=== PATIENT | female | born 1945 | race Caucasian/White ===

== ENCOUNTER 2023-08-09 03:30 | Inpatient (IN) | payer OTHER, SELFPAY ==
[2023-08-08 20:56] VITALS: BP 200/89
[2023-08-08 21:26] LABS: % Basophils 0.5 % (0-2); % Immature Granulocytes 0.5 % (0-0.5); % Lymphocytes 19.6 % (20.5-51.1); % Monocytes 6.6 % (1.7-9.3); % Neutrophils 68.8 % (42.2-75.2); Absolute Basophils 0.1 10^3/uL (0-0.2); Absolute Eosinophils 0.5 10^3/uL (0-0.7); Absolute Immature Granulocytes 0.1 10^3/uL (0-0.05); Absolute Lymphocytes 2.5 10^3/uL (1.2-3.4); Absolute Monocytes 0.9 10^3/uL (0.1-0.6); Absolute Neutrophils 8.9 10^3/uL (1.4-6.5); Hematocrit 46.3 % (37.0-47.0); Hemoglobin 15.9 g/dL (12.0-16.0); Mean Corp Hgb Conc. 34.3 g/dL (33.0-37.0); Mean Corpuscular Hgb 31.5 pg (27.0-31.0); Mean Corpuscular Volume 91.7 fL (81.0-99.0); Mean Platelet Volume 9.1 fL (7.4-10.4); Nucleated Red Blood Cells % 0 %; Platelet Count 337 10^3/uL (130-400); Red Blood Cell Count 5.05 10^6/uL (4.20-5.40); Red Cell Dist. Width 13.5 % (11.5-14.5); White Blood Cell Count 12.9 10^3/uL (4.8-10.8)
[2023-08-08 21:41] LABS: ALT (SGPT) 17 U/L (0-35); AST (SGOT) 25 U/L (14-36); Albumin 4.4 g/dl (3.5-5.0); Alkaline Phosphatase 75 U/L (38-126); Blood Urea Nitrogen 28 mg/dl (7-17); Carbon Dioxide 26 mmol/L (22-30); Chloride 103 mmol/L (98-107); Glucose 137 mg/dl (70-99); Potassium 3.9 mmol/L (3.5-5.1); Sodium 140 mmol/L (135-145); Total Bilirubin 0.8 mg/dl (0.2-1.3); Total Protein 8.2 g/dl (6.3-8.2); eGFR 56.95
[2023-08-08 21:52] LABS: NT-proBNP 1400 pg/ml; Troponin I < 0.012 ng/ml
[2023-08-09] VITALS (10 sets, daily range): BP systolic 98–145; BP diastolic 46–74; PULSE 55; BMI 32.8; BMI 30.6
[2023-08-09 00:53] LABS: APTT 37.1 Sec (23.4-35.0)
[2023-08-09 00:55] LABS: D-Dimer 1.37 ug/mlFEU (0.00-0.50)
--- NOTE | 2023-08-09 01:17 | ED.GENMED ---
History of Present Illness
General
Chief Complaint: Breathing Problem
Source: patient, previous radiology exam (Echocardiogram 2019 showing EF of 70 to 75% LVOT gradient as well as moderate mitral regurgitation) and previous hospital records (Outpatient sleep study June 10, 2023 showing severe obstructive sleep
apnea)
Exam Limitations: none
Time Seen by Provider: 08/08/23 23:11
Nursing documentation reviewed up to this point in time: agreed with
Travel History
Have you had any contact with someone who has COVID-19?: No
Do you have any symptoms of coronavirus? Fever > 100 degrees, chills, cough, shortness of breath, sore throat, loss of taste or smell, muscle aches, or headache?: No
History of Present Illness
History of Present Illness:
This is an 78-year-old woman who has history of hypertension, hyperlipidemia, hypothyroidism. Diagnosed with severe obstructive sleep apnea on sleep study June 10, she was fitted with CPAP with nocturnal oxygen which she began using
approximately 1 month ago. 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 She follows with Dr. Ulrich and and reports follow-up echocardiogram within the past year
was stable and unchanged. She also notes some chronic nasal congestion, chronic fullness and decreased hearing in her left ear that has been an ongoing issue for more than a year.
More recently however over the past 2 nights she complains of severe dyspnea after lying down in bed. Dyspnea accompanied with some palpitations feeling that her heart is beating hard and somewhat rapid. She was able to fall asleep last night
after starting her CPAP but dyspnea worsened tonight after lying down in bed which prompted ED evaluation. She has noted some dyspnea and exertion over the past few days most noted when going up or down the steps. She has not had a cough, no
fevers or chills, no chest pain, no leg pain or swelling. No change in weight. No history of similar episodes in the past.
She follows with pulmonary, Dr. Imelda Nichols with next appointment scheduled in 2 weeks time.
She also follows with ENT with next appointment September 21, 2023.
Past History
Past History
ED Past Medical History: HTN, Hypercholesterolemia and Hypothyroidism
ED Past Surgical History: Appendectomy and Gynecological
Social History
Tobacco: Non-smoker
Alcohol: None
Drug: None
Personal:
Living: with family
Employment: Retired
Family History
Family History: Other (Noncontributory)
Phy Exam
Physical Exam
Physical Exam:
GENERAL: 78-year-old woman appears somewhat younger than stated age, bright and alert, pleasant, appears in no acute distress. Very mild resting tachypnea noted more so when talking in longer sentences. Room air pulse ox 86 to 88%.
EYE: pupils equal and reactive. anicteric
NECK: Supple, nontender, no meningismus, no significant adenopathy.
ENT: posterior pharynx is clear, oral mucosa is moist. TM clear b/l, moderately boggy pale blue turbinates without rhinorrhea.
CARDIAC: Regular rate and rhythm. 3/6 holosystolic murmur
LUNGS: no acute respiratory distress, scant bibasilar rales left greater than right otherwise lungs are clear to auscultation.
ABDOMEN: Soft, nondistended, without focal tenderness, no r/g, normoactive BS.
NEUROLOGICAL: Alert and oriented x3, no focal neuro deficits.
SKIN: Warm and dry, normal color, skin intact. No rash.
MUSCULOSKELETAL: No C/C/E. peripheral pulses are full and equal b/l. No palpable tenderness.
PSYCH: Normal and appropriate interaction.
Scores
Heart Failure Risk
Heart Failure Risk Score: Yes
History of Stroke or TIA: No
History of intubation for respiratory distress: No
Heart rate on ED arrival >/= 110: No
SaO2 <90% on arrival on room air: Yes
HR >/=110 during 3min walk test (or too ill to perform test): Yes
ECG has acute ischemic changes: No
Urea >/=12mmol/L (BUN 33.6mg/dL): No
Serum CO2>/=35mmol/L: No
Troponin I or T elevated to NE Level (0.4mg/dL): No
NT-proBNP >/=5,000ng/L (5,000pg/ml): No
HF Risk Score: 3
Admission Status: HIGH RISK 15.9% Consider SNF treatment or admission to hospital
Course
Orders/Labs/Results
Orders:
Orders
08/08/23 21:01
Electrocardiogram (*1) Urgent
Reason for Study: Shortness of Breath
EKG- Treatment ONCE
CR Chest - 2 Views Urgent
Comment:
Reason For Exam: SOB
08/08/23 21:16
Complete Blood Count/With Diff Urgent
Comprehensive Metabolic Panel Urgent
NT-proBNP Urgent
Troponin I Urgent
08/08/23 23:40
D-Dimer Urgent
Comment: .
PTT Urgent
08/09/23 01:13
CT Chest Pe Study Urgent
Comment:
Reason For Exam: SOB, elevated d-dimer, hypoxia
08/09/23 01:49
Urinalysis Reflex To Culture Urgent
Date Specimen was Collected: 08/09/23
Time Specimen was Collected: 01:49
08/09/23 02:31
Furosemide [Lasix] 40 mg IV NOW STA
Abnormal Lab Results
08/08/23 08/09/23
21:16 00:28
WBC 12.9 H 10^3/uL
(4.8-10.8)
MCH 31.5 H pg
(27.0-31.0)
Abs Immat Gran (auto) 0.1 H 10^3/uL
(0-0.05)
Absolute Neuts (auto) 8.9 H 10^3/uL
(1.4-6.5)
Absolute Monos (auto) 0.9 H 10^3/uL
(0.1-0.6)
Lymphocytes % 19.6 L %
(20.5-51.1)
APTT 37.1 H Sec
(23.4-35.0)
D-Dimer 1.37 H ug/mlFEU
(0.00-0.50)
BUN 28 H mg/dl
(7-17)
Glucose 137 H mg/dl
(70-99)
Calcium 11.0 H mg/dl
(8.4-10.2)
08/08/23 21:16
08/08/23 21:16
Vital Signs
Initial and Last Documented VS:
Initial Vital Signs
Temp Pulse Resp BP Pulse Ox
97.9 F 87 20 200/89 89
08/08/23 20:56 08/08/23 20:56 08/08/23 20:56 08/08/23 20:56 08/08/23 20:56
Last Documented Vital Signs
Temp Pulse Resp BP Pulse Ox
97.9 F 70 11 131/62 93
08/08/23 20:56 08/09/23 02:42 08/09/23 02:00 08/09/23 02:42 08/09/23 02:00
MDM/Problems Addressed
Differential Diagnosis Includes:
Concern for acute CHF, pneumonia, acute on chronic sinusitis, PE, arrhythmia.
Patient is noted to be moderately hypoxic with room air pulse ox 86 to 88%. Improves to 91 to 94% on nasal cannula oxygen at 2.5 L.
She is noted to have mild nasal stuffiness but according to patient and daughter at bedside this is chronic and unchanged.
Echocardiogram from October 2018 concern for LVOT obstruction as well as moderate mitral regurgitation. Concern for progression from 2019, concern for acute CHF.
Labs are remarkable for mildly elevated white blood cell count of 12.9. Normal H&H. Chemistries show mildly elevated BUN of 28, normal creatinine of 1.0. Troponin is negative.
BNP is elevated at 1400, I have no old results to compare.
Chest x-ray is unremarkable.
Patient reports no recent travel, no leg pain or swelling but she is noted to be moderately hypoxic thus must consider PE thus will check D-dimer and if positive we will plan for CT of the chest/PE study.
She is noted to be moderately hypertensive with blood pressure initially reported 200/89, has improved to 170/90. Patient states her blood pressure generally runs 130s to 140s systolic.
Chronic conditions affecting care: HTN
*Radiology
Radiology exam reviewed: radiology read reviewed (Chest x-ray is unremarkable. CT of the chest shows no PE, mild pulmonary edema)
*Pulse Oximetry
Patient hypoxic: yes
*EKG
Interpreted by ED Provider?: Yes
Comparison EKG: no changes (Unchanged from previous September 2018)
Rate: normal
Rhythm: sinus
[place]: normal axis
Interval: normal interval
QRS Pattern: left vent hypertrophy
Ischemia: T-wave inversion (Flipped T waves high lateral, similar and unchanged from previous)
*Voyage Management System Operator Interpretation
Rate: normal
Interpretation: normal
Rhythm: sinus and PAC's
*Critical Care Note
Total Time (30-74mins, 75-104mins- exclusive of procedures): Not Applicable
Update Note
Update Note:
PE study shows no evidence of PE but does note mild pulmonary edema.
I suspect acute hypoxia, acute nocturnal dyspnea is CHF in nature.
Will give an IV dose of Lasix, continue nasal cannula oxygen and will admit to hospitalist service.
ED Attending Note
-
Portions of this chart may have been created with voice recognition software.� Occasional wrong word or��sound alike� substitutions may have occurred due to the inherent limitations of voice recognition software.
Discharge Plan
Departure
Patient Disposition: Admit
Date of Disposition: 08/09/23
Time of Disposition: 02:33
Admit to: Telemetry
Admit to doctor: Heidy
Presentation/result/management discussed w/ accepting MD/DO: Hospitalist
Condition: Fair
Discharge Problem:
Acute CHF (congestive heart failure), Acute hypoxic respiratory failure
Prescriptions:
No Action
multivitamin [One-A-Day Essential] 1 EACH tablet
1 tab PO QPM
metoprolol tartrate 100 MG tablet
150 mg PO QPM
metoprolol tartrate 100 MG tablet
150 mg PO DAILY
Patient Comments:
just starting 100mg in the AM tomorrow per pt (06/23/15)
aspirin 81 MG tablet,delayed release (DR/EC)
81 mg PO QPM
levothyroxine 100 MCG tablet
88 mcg PO DAILY
calcium carbonate-vitamin D3 [Calcium 600 + D(3)] 1 EACH tablet
2 tab PO QPM
levocetirizine 5 MG tablet
5 mg PO QPM
Fluticasone Propionate
2 spray intranasal QPM PRN (Reason: congestion)
Patient Comments:
50mcg
cyanocobalamin (vitamin B-12) [Vitamin B-12] 1,000 mcg Tablet
1 mcg PO DAILY
rosuvastatin 20 mg Tablet
20 mg PO DAILY
amlodipine benzoate
5 mg PO DAILY
iron
27 mg PO DAILY
lisinopril
40 mg PO DAILY
montelukast
10 mg PO DAILY
lisinopril 10 MG tablet
40 mg PO DAILY
Referrals:
Liliana Lassiter MD [Family Provider] -
Interventions
Interventions:
*Risk Screen - Suicide Last Done: 08/08/23 20:56
*General Assessment Last Done: 08/08/23 20:56
*Neglect/Abuse Screening Last Done: 08/08/23 20:56
ED- Fall Risk Assessment Last Done: 08/09/23 00:11
*ED COVID-19 Vaccine History Last Done: 08/09/23 00:11
ED- Cardiac Assessment Last Done: 08/09/23 00:11
ED- Pulmonary Assessment Last Done: 08/09/23 00:12
[2023-08-09] MEDS: LASIX 40 MG IV ×2 (02:42→08:54)
--- NOTE | 2023-08-09 03:00 | HPS.HSE ---
Family Physician
-
Family Physician: Liliana Lassiter MD
Chief Complaint
-
Worsening SoB
History of Present Illness
78F HX HTN, HLD, hypothyroid , Asymmetric septal hypertrophy.. mild to mod LVOT obstruction , stable serial ECHO, severe DEEJAY , start using CPAP for 4 weeks pw orthopnea, worsening APODACA.
ROS
She has not had a cough, no fevers or chills, no chest pain, no leg pain or swelling.
No change in weight.
No history of similar episodes in the past.
Medical History
Past Medical History
Past Medical History: Reports HTN, Hypercholesterolemia, Hypothyroidism and Other (DEEJAY on CPAP HS )
Past Surgical History: Reports Appendectomy and
Social History
Tobacco: Non-smoker
Alcohol: None
Family History
Family History: Not pertinent
Allergies / Home Medications
Allergies reflects when Allergies were last updated in [facility].
Home Medications with original date entered in [facility]
Allergy/Medication List:
Allergies
Allergy/AdvReac Type Severity Reaction Status Date / Time
prednisone Allergy Unknown Verified 08/08/23 23:59
Home Medications
Fluticasone Propionate 2 spray intranasal QPM PRN congestion 06/23/15
aspirin 81 mg tablet,delayed release 81 mg PO QPM 06/23/15
c21/15
levocetirizine 5 mg tablet 5 mg PO QPM 06/23/15
levothyroxine 100 mcg tablet 88 mcg PO DAILY 06/23/15
metoprolol tartrate 100 mg tablet 150 mg PO DAILY 06/23/15
metoprolol tartrate 100 mg tablet 150 mg PO QPM 06/23/15
multivitamin (One-A-Day Essential tablet) 1 tab PO QPM 06/23/15
amlodipine benzoate 5 mg PO DAILY 08/08/23
cyanocobalamin (vitamin B-12) 1,000 mcg tablet (Vitamin B-12) 1 mcg PO DAILY 08/08/23
iron 27 mg PO DAILY 08/08/23
lisinopril 40 mg PO DAILY 08/08/23
montelukast 10 mg PO DAILY 08/08/23
rosuvastatin 20 mg tablet 20 mg PO DAILY 08/08/23
lisinopril 10 mg tablet 40 mg PO DAILY 08/09/23
Review of Systems
-
Constitutional: Reports No Symptoms
EENT: Reports No Symptoms
Respiratory: Reports See HPI
Cardiac: Reports See HPI
Abdomen/GI: Reports No Symptoms
: Reports No Symptoms
Musculoskeletal: Reports No Symptoms
Skin: Reports No Symptoms
Neurological: Reports No Symptoms
Endocrine: Reports No Symptoms
Hematologic/Lymphatic: Reports No Symptoms
Psych: Reports No Symptoms
Physical Exam
Vital Signs
Vital Signs
Temp Pulse Resp BP Pulse Ox
97.9 F 70 11 131/62 93
08/08/23 20:56 08/09/23 02:42 08/09/23 02:00 08/09/23 02:42 08/09/23 02:00
Physical Exam
General: Other (see below )
Laboratory Results
-
08/08/23 21:16
08/08/23 21:16
Laboratory Results
APTT 37.1 Sec (23.4-35.0) H 08/09/23 00:28
Total Bilirubin 0.8 mg/dl (0.2-1.3) 08/08/23 21:16
AST 25 U/L (14-36) 08/08/23 21:16
ALT 17 U/L (0-35) 08/08/23 21:16
Alkaline Phosphatase 75 U/L (38-126) 08/08/23 21:16
Troponin I < 0.012 ng/ml 08/08/23 21:16
Data Reviewed
-
Diagnostic Radiology: Report Reviewed by me
CT Scan: Report Reviewed by me
Lab Data: Labs Reviewed by me
Old Records: Reviewed
Impression/Plan
-
Reviewed VS: unremarkable except POx 92 on RA
PE
Gen: no acute distress.
HEENT: anicteric
Neck: supple, no JVD
Lungs: mild resting tachypnea
Cor: RRR S1 S2 pansystolic murmur noted
Abdomen: benign exam
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
MS: edema
Psych: apprpiate
Data
WCC 12.9
DD 1.37
BUN 28
nl Cr
e GFR 56
BG 137
Ca 11
NEG TPNI
proBNP 1400
Pending UA
EKG
NORMAL SINUS RHYTHM
LEFT VENTRICULAR HYPERTROPHY WITH REPOLARIZATION ABNORMALITY ( R in aVL ,
Alex product )
ABNORMAL ECG
WHEN COMPARED WITH ECG OF 01-SEP-2018 14:55,
NO SIGNIFICANT CHANGE WAS FOUND
CXR : no acute process
07/22/22 ECHO
LVEF 70-75
Asymmetric septal hypertrophy.
Moderate mitral regurgitation.
Mild aortic stenosis.
CTA PE prtocol
No PE
Mild pul edema
prominemt mediastinal and b/l hilar LAD
No prior hospitalist admission:
ASSESSMENT & PLAN
New onset acute pulmonary edema
Associated acute hypoxic RTF
P Card: Dr Ruboi
- cont. IV lasix 40 daily
- cont CARGO BRACER Lisinopril
- cont CARGO BRACER Metoprolol
- daily IOs, WT
- daily BMP
- CBC card consult
Hypercalcemia
- held Calcium carbonate 600 mg-vitamin D3 10 mcg (400 unit) 2 tab PO QPM
- FU Ca
Severe DEEJAY
- cont. CPAP HS
Chronic condition:
HTN
Hypercholesterolemia
Hypothyroidism
- cont. all OP Med s
DVT Px: LMWH
Code: Full
Ip TLM
[2023-08-09 03:10] LABS: Urine Albumin Negative (Neg - Trace); Urine Bilirubin Negative (Negative); Urine Character Clear (Clear); Urine Color Yellow; Urine Glucose Negative (Negative); Urine Ketone Negative (Negative); Urine Leukocyte 2+ (Negative); Urine Nitrite Negative (Negative); Urine Occult Blood Negative (Negative); Urine Urobilinogen Negative (Neg - 1+)
[2023-08-09 03:41] LABS: Urine Squamous Cell 16-20 /LPF (Few)
[2023-08-09 04:02] LABS: Urine Red Blood Cell 0-2 /HPF (0-2)
[2023-08-09 04:03] LABS: Urine Bacteria Few (Negative)
--- NOTE | 2023-08-09 05:10 | PTCARENOTE ---
Pt admitted to room 2130 from ED via stretcher, aaox3 and able to make needs known, O2 at 3L via NC. Pt offers no c/o pain, however complains of congestion mostly from left nostril and left ear decrease hearing and feelings of increase secretions in
the back of her throat but that do not interfere with swallowing or breathing. Pt oriented to room and call light.
[2023-08-09 06:54] LABS: Blood Urea Nitrogen 27 mg/dl (7-17); Calcium 10.1 mg/dl (8.4-10.2); Carbon Dioxide 29 mmol/L (22-30); Chloride 103 mmol/L (98-107); Estimated Creatinine Clearance 40 ml/min; Glucose 108 mg/dl (70-99); Potassium 3.5 mmol/L (3.5-5.1); Sodium 139 mmol/L (135-145); eGFR > 60.00
--- NOTE | 2023-08-09 07:57 | CON.CAR ---
Addendum entered and electronically signed by Melvin Sanchez MD 08/09/23 12:08:
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 No edema. No chest pain. She did receive IV lasix, and feels better since admission. Exam with RRR, III/ systolic murmur across precordium, no edema. Cr
0.9.
SOB. Possible acute HFPEF. Check echo. Will need to be cautious with diuresis given HOCM physiology. Will assess need for additional diuretic in AM.
Original Note:
Consultation
Consultation Request
Date/Time Consultation Requested: 08/09/23 05:10
Date/Time Consultation Performed: 08/09/23 07:45
Requesting Provider: Dr. Moody
Performing Provider: MARCELINO Venegas for Dr. Sanchez
Reason for Consultation: Acute heart failure
Medical History
-
Chief Complaint: Shortness of breath
History of Present Illness:
Nereyda Robison is an 78-year-old female (known to Dr. Rubio, her primary service cleaner), with LVOT obstruction, aortic stenosis, mitral regurgitation, hypertension, dyslipidemia, and hypothyroidism presented with shortness of breath. Her
shortness of breath started approximately 1 week ago. At that time she had dyspnea on exertion. She had no shortness of breath with rest. She denies associated symptoms of chest pain, diaphoresis, and nausea with her APODACA. On Tuesday evening, she
felt short of breath while going to bed. She put on her CPAP with oxygen therapy as prescribed and fell asleep and did not have any issues overnight. Last night, Tuesday night, she experienced the same situation but did not receive any relief from
her CPAP. She had a severe orthopnea. She tried to sit up but was still unable to take a deep breath. She presented to the emergency department. Her proBNP was found to be 1400. CAT scan did not show PE nor thoracic aortic dissection but did
show mild pulmonary edema. She was given furosemide 40 mg IV and reports significant relief.
Past Medical History
Past Medical History: HTN, Hypercholesterolemia, Hyperthyroidism, Valvular Disease (Mitral regurgitation) and Other (LVOT obstruction)
Past Surgical History: Appendectomy and Gynecological
Social History
Tobacco: Former Smoker
Living: With Family
Employment: Retired
Family History
Family History: Reviewed & Not Pertinent
Allergies / Home Medications
Allergy/AdvReac Type Severity Reaction Status Date / Time
prednisone Allergy Unknown Verified 08/08/23 23:59
Medication Instructions Recorded Confirmed Type
Fluticasone Propionate 2 spray intranasal QPM PRN 06/23/15 08/09/23 History
congestion
aspirin 81 mg tablet,delayed 81 mg PO QPM 06/23/15 08/08/23 History
release
calcium carbonate 600 mg-vitamin 2 tab PO QPM 06/23/15 08/08/23 History
D3 10 mcg (400 unit) tablet
(Calcium 600 + D(3))
levocetirizine 5 mg tablet 5 mg PO QPM 06/23/15 08/09/23 History
levothyroxine 100 mcg tablet 88 mcg PO DAILY 06/23/15 08/09/23 History
metoprolol tartrate 100 mg tablet 150 mg PO DAILY 06/23/15 08/09/23 History
metoprolol tartrate 100 mg tablet 150 mg PO QPM 06/23/15 08/09/23 History
multivitamin (One-A-Day Essential 1 tab PO QPM 06/23/15 08/09/23 History
tablet)
amlodipine benzoate 5 mg PO DAILY 08/08/23 08/09/23 History
cyanocobalamin (vitamin B-12) 1 mcg PO DAILY 08/08/23 08/09/23 History
1,000 mcg tablet (Vitamin B-12)
iron 27 mg PO DAILY 08/08/23 08/09/23 History
lisinopril 40 mg PO DAILY 08/08/23 08/09/23 History
montelukast 10 mg PO DAILY 08/08/23 08/09/23 History
rosuvastatin 20 mg tablet 20 mg PO DAILY 08/08/23 08/09/23 History
lisinopril 10 mg tablet 40 mg PO DAILY 08/09/23 08/09/23 History
Review of Systems
-
History Source: Patient
All other systems: Negative unless noted
Respiratory: No Symptoms
Cardiac: No Symptoms
Abdomen/GI: No Symptoms
: No Symptoms
Physical Exam
Vital Signs
Temp Pulse Resp BP Pulse Ox
98.1 F 64 18 120/58 94
08/09/23 07:54 08/09/23 07:54 08/09/23 07:54 08/09/23 07:54 08/09/23 07:54
Lab Results
08/08/23 21:16
08/09/23 05:47
Troponin I < 0.012 ng/ml 08/08/23 21:16
Chk-P-Zugraskgaru Pept 1400 pg/ml 08/08/23 21:16
Physical Exam
General: Well Developed, Well Nourished, No Apparent Distress and Comfortable
HEENT: Normocephalic and Anicteric
Respiratory: Clear and Non Labored Respirations
Cardiac: S1/S2, Regular Rhythm and Murmur (III/ RUSB crescendo decrescendo murmur)
Breast: Deferred by me
GI: Soft, Non Tender, Non Distended and Normal Bowel Sounds
Rectal: Deferred by Provider
Genito-urinary: No Costovertebral Tender
Musculoskeletal: No Clubbing, No Cyanosis and No Edema
Skin: Warm and Dry
Neuro: AO x 3
Hematologic/Lymphatic: No Lymphadenopathy
Psych: Calm
Impression / Plan
-
HFpEF, acute, severe requiring hospitalization
-Presented with orthopnea and elevated proBNP
-Improvement with furosemide 40 mg IV, hold for now given possible LVOT obstruction
-Trend daily weight, I/O, and BMP with diuresis, we do not want her over-diuresed
-Update TTE
-Heart failure education during hospitalization
Left ventricular outflow tract obstruction
-Suspicious for HOCM (asymmetric septal hypertrophy with MOLLY)
-Resting mid peaking 70 mmHg gradient in the LVOT, mid to late peaking gradient up to 91 mmHg at rest
-Prior echocardiogram technically difficult, questionable LVOT obstruction versus mid cavity gradient, update TTE
Mitral regurgitation, with MOLLY by TTE 07/2022
Aortic stenosis, mild with peak/mean gradients 34/60 mmHg by TTE 07/2022
Hypertension
Dyslipidemia
DEEJAY, severe, on CPAP, follows with Dr. Nichols
Prediabetes
Data Reviewed
-
EKG: Report Reviewed by me (Sinus rhythm, LVH, rate 74)
Radiology: Report Reviewed by me (CXR: No acute disease of the chest)
CT Scan: Report Reviewed by me (Chest: No evidence of pulmonary embolism or thoracic aortic dissection. Findings suggestive of mild pulmonary edema. Mild coronary arterial and aortic valvular calcification.)
Labs: Labs Reviewed by me
Old Records: Reviewed
[2023-08-09] MEDS: SYNTHROID 88 MCG PO (07:58)
[2023-08-09] MEDS: LOPRESSOR 150 MG PO (08:53)
[2023-08-09] MEDS: KCL 20 MEQ PO (08:53)
[2023-08-09] MEDS: SINGULAIR 10 MG PO (08:53)
[2023-08-09] MEDS: CRESTOR 20 MG PO (08:53)
[2023-08-09] MEDS: ZESTRIL 40 MG PO (08:54)
[2023-08-09] MEDS: NORVASC 5 MG PO (08:54)
--- NOTE | 2023-08-09 14:20 | CM ---
Reviewed the chart notes and spoke with the patient at the bedside. The patient's granddaughter resides with the patient in a two story home with two steps to enter. The patient has a CPAP machine and O2 concentrator. CPAP is from [facility]. The
patient has a stair glide in home. The patient confirmed her pharmacy of choice is [facility] [address] [place]. continues to be available to patient/family and is monitoring medical plan for needs at discharge.
Plan: Discharge plans will depend on the patient's progress.
--- NOTE | 2023-08-09 15:44 | W.PN.HOSP.TC ---
Today's Communication/Plan
-
.
Assessment / Plan
Assessment / Plan
ASSESSMENT:
Heart failure with preserved ejection fraction
Elevated D-dimer
Hypertension
Obstructive sleep apnea on CPAP
Dyslipidemia
Chronic allergies
Hypercalcemia
DVT prophylaxis
PLAN:
# Heart failure with preserved ejection fraction
Patient had shortness of breath since 1 week, orthopnea the night before admission
Elevated proBNP 1400
X-ray chest report: No acute disease of the chest
CT chest on 08/09/2023 report: 1. No evidence of pulmonary embolism or thoracic aortic dissection.
2. Findings suggestive of mild pulmonary edema. No significant pleural effusion on either side.
3. Mediastinal and hilar lymphadenopathy of unknown etiology.
4. Mild coronary arterial and aortic valvular calcification. Please correlate with symptoms of and risk factors for coronary artery and valvular disease, with further workup as clinically appropriate.
Echo on 07/22/2022 report: Hyperdynamic left ventricular systolic function.
�Estimated left ventricular ejection fraction is 70-75% �
�Asymmetric septal hypertrophy.� Mid cavity and left ventricular outflow tract
�gradients as noted.
�Moderate mitral regurgitation, with MOLLY
�Mild aortic stenosis.
ECHO report today: Asymmetric septal hypertrophy (IVS 1.6cm, LVPW 1.2cm).
�Hyperdynamic left ventricular systolic function. Left ventricular ejection
�fraction is 70-75%.
�Peak gradient across the LVOT is 120 mmHg.
�Systolic anterior motion of the anterior mitral valve leaflet. Moderate mitral
�regurgitation.
�Finding consistent with HOCM.
Continue metoprolol
�
Improvement with Lasix 40 mg IV, Lasix on hold due to possibility of LVOT obstruction
Monitor daily weights, I's/O
# Elevated D-dimer 1.37
CT chest report as above, no evidence of PE
Continue DVT prophylaxis with Lovenox
# Hypertension
Continue amlodipine, lisinopril, metoprolol
# Obstructive sleep apnea on CPAP
# Dyslipidemia
continue rosuvastatin
# Chronic allergies
Continue loratadine, montelukast, fluticasone nasal spray
# Hypercalcemia
On admission 11
Calcium carbonate+ vitamin D3 was put on hold
Calcium today is 10.1
# DVT prophylaxis
Continue Lovenox
Anticipated Discharge: 24 - 48 hours
Subjective/Interval History
-
Date of Service: August 09, 2023
Patient does not have any breathing difficulty, chest pain, fever, chills, cough. She reports having nasal congestion.
She is currently on 2 L of oxygen, at SpO2 93%
Objective Data
-
Labs:
Laboratory Results
08/09/23
05:47
Sodium 139
Potassium 3.5
Chloride 103
Carbon Dioxide 29
BUN 27 H
Creatinine 0.9
Glucose 108 H
Calcium 10.1
Vital Signs:
Vital Signs
Temp Pulse Resp BP Pulse Ox
97.8 F 55 16 111/50 93
08/09/23 15:16 08/09/23 15:16 08/09/23 15:16 08/09/23 15:16 08/09/23 15:16
I&O
08/08/23 08/09/23 08/10/23
06:59 06:59 06:59
Intake Total 500 / 500
Output Total 1100 / 1100
Balance -600 / -600
Review of Systems
-
All other systems: Reviewed and negative (As per history)
Physical Exam
-
General: Well Developed, Well Nourished, No Apparent Distress and Comfortable
HEENT: Normocephalic and Atraumatic
Respiratory: Clear to Auscultation
Cardiac: Regular Rhythm, S1/S2 and Murmur (Systolic)
GI: Soft, Nontender, Nondistended and Normal Bowel Sounds
Musculoskeletal: No Clubbing, No Cyanosis and No Edema
Skin: Warm and Dry
Neuro: Awake, Alert, Oriented and AO x 3
Psych: Calm
--- NOTE | 2023-08-09 16:13 | W.PN.UPDATE ---
Update Note
Progress Note Update
Patient seen and examined
Impression:
Heart failure preserved EF.
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
Valvular heart disease including MR, aortic stenosis.
Essential hypertension
Dyslipidemia
Obstructive sleep apnea, severe recently initiated on CPAP at night
Obesity with BMI of 30
Prediabetes
Plan:
Acute CHF preserved EF.
She presents with torsional therapy at the [facility] dyspnea
Acute hypoxic respiratory insufficiency secondary to acute CHF
Repeated echocardiogram 08/09/23
Asymmetric septal hypertrophy (IVS 1.6cm, LVPW 1.2cm).
�Hyperdynamic left ventricular systolic function. Left ventricular ejection
�fraction is 70-75%.
�Peak gradient across the LVOT is 120 mmHg.
�Systolic anterior motion of the anterior mitral valve leaflet. Moderate mitral
�regurgitation.
�Finding consistent with HOCM.
�Compared to 07/22/22: prior LVOT gradient was 91 mmHg.
Improved with IV Lasix.
Noted with marginal BP.
Repeated echocardiogram with worsening of LVOT gradient.
Monitor hemodynamics closely holding further diuresis over the next 24 hours.
Continue beta-isael with caution
Hold calcium channel isael/amlodipine awaiting hypotension and vasodilation with worsening of LVOT gradient.
Attempt to wean off O2.
CPAP at night
[2023-08-09] MEDS: LOVENOX 40 MG SC (18:04)
[2023-08-09] MEDS: CLARITIN 10 MG PO (18:04)
[2023-08-09] MEDS: REFRESH EYE DROPS (PF) 1 DROPS OPHTH (18:04)
[2023-08-09] MEDS: ASPIR LOW (ENTERIC COATED) 81 MG PO (18:04)
[2023-08-09] MEDS: LOPRESSOR PO (20:20)
[2023-08-09] MEDS: REFRESH CELLUVISC GEL 1 DROPS BOTH EYES (20:20)
[2023-08-10] VITALS (8 sets, daily range): BP systolic 112–143; BP diastolic 52–70; PULSE 60–79; BMI 30.4
[2023-08-10] MEDS: SYNTHROID 88 MCG PO (05:57)
[2023-08-10 06:59] LABS: Blood Urea Nitrogen 37 mg/dl (7-17); Calcium 10.3 mg/dl (8.4-10.2); Carbon Dioxide 30 mmol/L (22-30); Chloride 99 mmol/L (98-107); Estimated Creatinine Clearance 33 ml/min; Glucose 113 mg/dl (70-99); Potassium 4.4 mmol/L (3.5-5.1); Sodium 139 mmol/L (135-145)
[2023-08-10] MEDS: LOPRESSOR 150 MG PO (08:29)
[2023-08-10] MEDS: SINGULAIR 10 MG PO (08:29)
[2023-08-10] MEDS: CRESTOR 20 MG PO (08:29)
[2023-08-10] MEDS: ZESTRIL 40 MG PO (08:29)
--- NOTE | 2023-08-10 10:35 | W.PN.CD ---
Addendum entered and electronically signed by Melvin Sanchez MD 08/10/23 17:09:
78 yo female with HOCM, LVOT gradient 120, obesity, DEEJAY/CPAP admitted with SOB. She was given 2 doses of lasix and feels better. Exam with RRR, III/ systolic murmur across precordium. Cr 1.1. Tele: SR/SB 40s-60s.
Will need to be cautious with diuretic given HOCM, LVOT obstruction. She is stable off of diuretic today. We may do prn lasix at home. Continue metoprolol. Hold amlodipine--BP looks good.
Original Note:
Today's Communication / Plan
-
continue to hold Lasix and Amlodipine, ambulate and monitor BP
Impression / Plan
-
HFpEF, acute, severe requiring hospitalization and IV diuresis
-Presented with orthopnea and elevated proBNP 1400
-Improvement with furosemide 40 mg IV, hold Lasix given LVOT obstruction/HOCM
-Trend daily weight, I/O, and BMP with diuresis, we do not want her over-diuresed due to HOCM
-echo 08/09/23 with hyperdynamic LV function, EF 75%, peak gradient across the LVOT is 120mmHg, moderate MR, consistent with HOCM
-Heart failure education during hospitalization
Left ventricular outflow tract obstruction
-echo consistent with HOCM (asymmetric septal hypertrophy with MOLLY), peak gradient across the LVOT is 120mmHg, previously 91mmHg
-Prior echocardiogram technically difficult, questionable LVOT obstruction versus mid cavity gradient
-echo as above
HTN
-stable with holding Lasix and Amlodipine at this time.
Stable PMH:
Mitral regurgitation, moderate on echo as above.
Aortic stenosis, mild with peak/mean gradients 34/60 mmHg by TTE 07/2022
Dyslipidemia
DEEJAY, severe, on CPAP, follows with Dr. Nichols
Prediabetes
Physical Exam
Vital Signs/Labs
Vital Signs
Temp Pulse Resp BP Pulse Ox
97.8 F 59 14 143/54 93
08/10/23 07:30 08/10/23 07:30 08/10/23 07:30 08/10/23 08:29 08/10/23 10:04
08/09/23 08/10/23 08/11/23
06:59 06:59 06:59
Actual Weight 66.497 kg 66.026 kg
08/08/23 21:16
08/10/23 05:40
APTT 37.1 Sec (23.4-35.0) H 08/09/23 00:28
08/08/23
21:16
[id number] Pept 1400
LAB Results
08/08/23
21:16
Troponin I < 0.012
Physical Exam
Constitutional: No acute distress
EENT: Anicteric and Moist mucous membranes
Cardiovascular: Rhythm & rate is regular
Respiratory: Respiratory effort normal and Lungs clear to auscul.
GI: Soft, Non tender and Normal bowel sounds
Neuro/Psych: AO x 3
Other: Skin (warm, dry)
Data Reviewed
-
Date of Service: August 10, 2023
Medical Decision Making: Reviewed Test Results
EKG: Report Reviewed by me
Echo: Report Reviewed by me
Labs: Labs Reviewed by me
Old Records: Reviewed
--- NOTE | 2023-08-10 10:56 | W.PN.HOSP.TC ---
Addendum entered and electronically signed by Nabeel Jimenez MD 08/10/23 16:38:
Patient seen and examined
Discussed with resident
Discussed with cardiology
Acute CHF secondary to HOCM
Echocardiogram indicative of increased LVOT graduated to 120 mmHg.
Significant improvement with 2 doses of IV Lasix.
Hold further diuresis and amlodipine for now avoiding hypotension.
Continue high-dose of beta-isael.
Increase activity.
Evaluate for home O2 (on CPAP at night with 2 L of nasal oxygen)
Final determination of discharge medication regimen over the next 24 hours.
Original Note:
Today's Communication/Plan
-
Attempt to wean off oxygen
Continue metoprolol
Hold amlodipine
Hold Lasix
Ambulate and monitor BP
Assessment / Plan
Assessment / Plan
ASSESSMENT:
Heart failure with preserved ejection fraction
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
Elevated D-dimer
Hypertension
Obstructive sleep apnea on CPAP
Dyslipidemia
Chronic allergies
Hypercalcemia
DVT prophylaxis
PLAN:
# Heart failure with preserved ejection fraction
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
Patient had shortness of breath since 1 week, orthopnea the night before admission
Elevated proBNP 1400
X-ray chest report: No acute disease of the chest
CT chest on 08/09/2023 report: 1. No evidence of pulmonary embolism or thoracic aortic dissection.
2. Findings suggestive of mild pulmonary edema. No significant pleural effusion on either side.
3. Mediastinal and hilar lymphadenopathy of unknown etiology.
4. Mild coronary arterial and aortic valvular calcification. Please correlate with symptoms of and risk factors for coronary artery and valvular disease, with further workup as clinically appropriate.
Echo on 07/22/2022 report: Hyperdynamic left ventricular systolic function.
�Estimated left ventricular ejection fraction is 70-75% �
�Asymmetric septal hypertrophy.� Mid cavity and left ventricular outflow tract
�gradients as noted.
�Moderate mitral regurgitation, with MOLLY
�Mild aortic stenosis.
ECHO report : Asymmetric septal hypertrophy (IVS 1.6cm, LVPW 1.2cm).
�Hyperdynamic left ventricular systolic function. Left ventricular ejection
�fraction is 70-75%.
�Peak gradient across the LVOT is 120 mmHg.
�Systolic anterior motion of the anterior mitral valve leaflet. Moderate mitral
�regurgitation.
�Finding consistent with HOCM.
Continue metoprolol
Attempt to wean off O2
Ambulate and monitor BP
�
Improvement with Lasix 40 mg IV, Lasix on hold due to possibility of worsening LVOT obstruction
Hold amlodipine awaiting hypotension, vasodilation and for the same above concern
Monitor daily weights, I's/O
# Elevated D-dimer 1.37
CT chest report as above, no evidence of PE
Continue DVT prophylaxis with Lovenox
# Hypertension
Stop amlodipine, continue with lisinopril, metoprolol
# Obstructive sleep apnea on CPAP
# Dyslipidemia
continue rosuvastatin
# Chronic allergies
Continue loratadine, montelukast, fluticasone nasal spray
# Hypercalcemia
On admission 11
Calcium carbonate+ vitamin D3 was put on hold
Calcium today is 10.3
# DVT prophylaxis
Continue Lovenox
Anticipated Discharge: 24 - 48 hours
Subjective/Interval History
-
Date of Service: August 10, 2023
Patient reports feeling better today, no SOB, no chest pain, dizziness, cough.
She is on 3 L oxygen at O2 sat 93%
Objective Data
-
Labs:
Laboratory Results
08/10/23
05:40
Sodium 139
Potassium 4.4 D
Chloride 99
Carbon Dioxide 30
BUN 37 H
Creatinine 1.1 H
Glucose 113 H
Calcium 10.3 H
Vital Signs:
Vital Signs
Temp Pulse Resp BP Pulse Ox
97.8 F 59 14 143/54 93
08/10/23 07:30 08/10/23 07:30 08/10/23 07:30 08/10/23 08:29 08/10/23 10:04
I&O
08/09/23 08/10/23 08/11/23
06:59 06:59 06:59
Intake Total 500 / 500 1440 / 1440
Output Total 1100 / 1100 500 / 500
Balance -600 / -600 940 / 940
Review of Systems
-
All other systems: Reviewed and negative (As per HPI)
Physical Exam
-
General: Well Developed, Well Nourished and No Apparent Distress
HEENT: Normocephalic and Atraumatic
Respiratory: Clear to Auscultation
Cardiac: Regular Rhythm, S1/S2 and Murmur (Systolic crescendo decrescendo murmur)
GI: Soft, Nontender, Nondistended and Normal Bowel Sounds
Musculoskeletal: No Clubbing, No Cyanosis and No Edema
Skin: Warm and Dry
Neuro: Awake, Alert, Oriented and AO x 3
Psych: Calm
--- NOTE | 2023-08-10 15:30 | CM ---
Reviewed the chart notes and spoke with the patient at the bedside. IMM signed and placed on the patient's chart. The patient continues on supplemental O2 @ 3L/min. CM continues to be available to patient/family and is monitoring medical plan for
needs at discharge.
Plan: Discharge to home when medically stable. If unable to wean from O2 will need home O2 testing.
[2023-08-10] MEDS: LOVENOX 40 MG SC (17:19)
[2023-08-10] MEDS: CLARITIN 10 MG PO (17:19)
[2023-08-10] MEDS: ASPIR LOW (ENTERIC COATED) 81 MG PO (17:19)
--- NOTE | 2023-08-10 18:31 | PTCARENOTE ---
pt oob with oxygen accessioner. pt walked the wisdom with Respiratory for a home O2 assessment this afternoon. pt was aaox3, pleasant and ate all her meals this shift.
[2023-08-10] MEDS: LOPRESSOR PO (20:41)
--- NOTE | 2023-08-10 23:21 | PTCARENOTE ---
Pt transferred to room 408-1 via WC and O2 via NC at 3L.All personal belongings and Cpap machine sent with pt, respiratory aware and will reapply mask. Report called to assigned RN.
--- NOTE | 2023-08-10 23:30 | PTCARENOTE ---
Received patient from via wheelchair. Patient stood and pivoted from wheelchair to bed independently. No current complaints of pain. Oriented patient to room and placed call mccarthy within reach. CPAP applied by RT.
[2023-08-11 03:29] VITALS: BP 114/60
[2023-08-11 03:50] VITALS: PULSE 77
[2023-08-11] MEDS: SYNTHROID 88 MCG PO (05:33)
[2023-08-11 05:36] VITALS: BMI 30.6
[2023-08-11 06:48] LABS: Blood Urea Nitrogen 35 mg/dl (7-17); Calcium 9.9 mg/dl (8.4-10.2); Carbon Dioxide 31 mmol/L (22-30); Chloride 98 mmol/L (98-107); Estimated Creatinine Clearance 40 ml/min; Glucose 106 mg/dl (70-99); Potassium 3.9 mmol/L (3.5-5.1); Sodium 137 mmol/L (135-145); eGFR > 60.00
[2023-08-11 07:16] VITALS: BP 114/64
[2023-08-11] MEDS: CRESTOR 20 MG PO (08:34)
[2023-08-11] MEDS: LOPRESSOR 150 MG PO (08:36)
[2023-08-11] MEDS: SINGULAIR 10 MG PO (08:36)
[2023-08-11] MEDS: ZESTRIL 40 MG PO (08:39)
--- NOTE | 2023-08-11 11:29 | W.PN.CD ---
Addendum entered and electronically signed by Kaylin Rubio MD 08/11/23 13:23:
I saw and examined the patient.
The NEURORADIOLOGIST's note was reviewed and I agree with the note.
Comment: Breathing is much better, needed a small amount of oxygen yesterday. Still no trial today off of oxygen. On exam, she is clear to auscultation bilaterally. She has a regular rate and rhythm normal S1-S2 2 out of 6 systolic murmur, lower
extremity edema is absent. Overall, she is feeling much better with mild diuresis. However, in review of her data, her D-dimer was elevated and she has mediastinal and hilar lymphadenopathy of unknown etiology. The degree of heart failure seems
out of proportion to the oxygen requirement. Will discuss with medicine. Recommend repeat weaning trial. From a cardiovascular perspective, diastolic dysfunction in the setting of hypertrophic obstructive cardiomyopathy is difficult to manage.
That said, we will move forward with as needed Lasix dosing. She will take on days she weighs more than 3 pounds in a day or 5 pounds in 5 days. If she takes more than 2 times then she will call. I will try to further optimize her hemodynamics to
limit outflow obstruction. Will decrease lisinopril to 20 mg a day and add diltiazem 120 mg a day. In the outpatient setting, we can further decrease lisinopril and increase diltiazem as heart rate allows. Once that is stable can repeat the LV
outflow track gradient via echocardiogram. We did briefly discuss the new hokum drug Camzyos. If no improvement on repeat echo with refer to [facility]. I offered referral now, but she prefers to see if we can help without traveling to [place].
Original Note:
Today's Communication / Plan
-
BP remains stable off amlodipine. Continue metoprolol. Will discuss OP lasix plan with Dr. Rubio- may do PRN, which I discussed with patient.
Impression / Plan
-
HFpEF: improved with 2 doses of lasix
-Presented with orthopnea and elevated proBNP 1400
-we do not want her over-diuresed due to HOCM, so lasix now held- appears euvolemic today
-echo 08/09/23 with hyperdynamic LV function, EF 75%, peak gradient across the LVOT is 120mmHg, moderate MR, consistent with HOCM
Left ventricular outflow tract obstruction
-echo consistent with HOCM (asymmetric septal hypertrophy with MOLLY), peak gradient across the LVOT is 120mmHg, previously 91mmHg
-Prior echocardiogram technically difficult, questionable LVOT obstruction versus mid cavity gradient
-continue BB
HTN
-stable with CCB held
-continue BB and CCB
Stable PMH:
Mitral regurgitation, moderate on echo as above.
Aortic stenosis, mild with peak/mean gradients 34/60 mmHg by TTE 07/2022
Dyslipidemia
DEEJAY, severe, on CPAP, follows with Dr. Nichols
Prediabetes
Physical Exam
Vital Signs/Labs
Vital Signs
Temp Pulse Resp BP Pulse Ox
97.9 F 75 16 136/60 95
08/11/23 07:16 08/11/23 08:36 08/11/23 07:16 08/11/23 08:36 08/11/23 07:16
08/10/23 08/11/23 08/12/23
06:59 06:59 06:59
Actual Weight 66.026 kg 66.451 kg
08/08/23 21:16
08/11/23 05:52
APTT 37.1 Sec (23.4-35.0) H 08/09/23 00:28
08/08/23
21:16
Opn-H-Rytqaqozanz Pept 1400
LAB Results
08/08/23
21:16
Troponin I < 0.012
Physical Exam
Constitutional: No acute distress
EENT: Anicteric
Cardiovascular: Rhythm & rate is regular
Respiratory: Respiratory effort normal and Lungs clear to auscul.
GI: Soft, Non tender and Normal bowel sounds
Neuro/Psych: AO x 3
Other: Skin (warm and dry)
Data Reviewed
-
Date of Service: August 11, 2023
EKG: Other (tele SR)
[2023-08-11 12:10] VITALS: BP 107/59
--- NOTE | 2023-08-11 12:38 | W.DS.TRANS ---
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
-
Discharge Instructions:
Discharge Diagnosis/Procedures CHF with HOCM.
Diet 2 Gram Sodium
Specialty Instructions Weigh Daily
Instructions:
Stand-Alone Forms:
Changes to Home Medications: Yes
Discharge Medications:
DC Medications w/original date entered in [employer]
Fluticasone Propionate 2 spray intranasal QPM PRN congestion 06/23/15
aspirin 81 mg tablet,delayed release 81 mg PO QPM Blood Clot Prevention/Tx 06/23/15
calcium carbonate 600 mg-vitamin D3 10 mcg (400 unit) tablet (Calcium 600 + D(3)) 2 tab PO QPM Supplement 06/23/15
levocetirizine 5 mg tablet 5 mg PO QPM Allergies 06/23/15
levothyroxine 100 mcg tablet 88 mcg PO DAILY Thyroid 06/23/15
multivitamin (One-A-Day Essential tablet) 1 tab PO QPM Supplement 06/23/15
cyanocobalamin (vitamin B-12) 1,000 mcg tablet (Vitamin B-12) 1 mcg PO DAILY Supplement 08/08/23
iron 27 mg PO DAILY Supplement 08/08/23
montelukast 10 mg PO DAILY Lung/Breathing Issues 08/08/23
rosuvastatin 20 mg tablet 20 mg PO DAILY High Cholesterol 08/08/23
diltiazem HCl 120 mg capsule,extended release 24 hr 120 mg PO DAILY #30 caps 08/11/23
furosemide 40 mg tablet (Lasix) 40 mg PO DAILY PRN Weight gain over 3lb #30 tabs 08/11/23
lisinopril 20 mg tablet 20 mg PO DAILY #30 tabs 08/11/23
metoprolol tartrate 50 mg tablet 150 mg PO BID #180 tabs 08/11/23
Home Medication Changes
Metoprolol dose increased
Lisinopril dose decreased
Amlodipine discontinued
Diltiazem added.
Pending Results: No
--- NOTE | 2023-08-11 14:59 | CM ---
CM following re: d/c planning
Chart reviewed
Pt is medically stable for d/c
IMM was reviewed with patient by previous CM
Pt was being monitored for home O2 needs however after testing by RT does not meet criteria for O2
Pt has no additional skilled needs noted
PLAN; d/c home no needs
== END 2023-08-11 15:39 | disposition home or self-care (01) | DRG 314 ==
LOC: 4 EAST ACU 03:30
PROVIDERS: Emergency Medicine; ADMITTING PHYSICIAN Internal Medicine; ATTENDING PHYSICIAN Internal Medicine; EMERGENCY PHYSICIAN Emergency Medicine; FAMILY PHYSICIAN Family Medicine; OTHER PHYSICIAN Internal Medicine
PROC: 5A09357 Assistance with Respiratory Ventilation, Less than 24 Consecutive Hours, Continuous Positive Airway Pressure (ICD-10-PCS; 2023-08-09)
DX: I42.1 Obstructive hypertrophic cardiomyopathy (principal); J96.01 Acute respiratory failure with hypoxia; I50.30 Unspecified diastolic (congestive) heart failure; I11.0 Hypertensive heart disease with heart failure; G47.33 Obstructive sleep apnea (adult) (pediatric); E03.9 Hypothyroidism, unspecified; H91.92 Unspecified hearing loss, left ear; I08.0 Rheumatic disorders of both mitral and aortic valves; D72.829 Elevated white blood cell count, unspecified; E66.9 Obesity, unspecified; R73.03 Prediabetes; R59.0 Localized enlarged lymph nodes; E83.52 Hypercalcemia; E78.00 Pure hypercholesterolemia, unspecified; Z79.890 Hormone replacement therapy; Z88.8 Allergy status to other drugs, medicaments and biological substances; Z87.891 Personal history of nicotine dependence; Z68.30 Body mass index [BMI] 30.0-30.9, adult
CPT/HCPCS: 71046; 71275; 80048; 80053; 81003; 81015; 83880; 84484; 85025; 85379; 85730; 87086; 93005; 93306; 94660; 96374; 99285; Q9967

== ENCOUNTER → 2023-09-29 12:40 | Outpatient (REF) | payer OTHER, SELFPAY | LOC: DHCBC MAIN 12:40 | PROVIDERS: ATTENDING PHYSICIAN Nurse Practitioner Gerontology; FAMILY PHYSICIAN Family Medicine | DX: I50.32 Chronic diastolic (congestive) heart failure (principal) | CPT/HCPCS: 93308 ==

== ENCOUNTER 2024-02-27 21:35 | Inpatient (IN) | payer OTHER, SELFPAY ==
[2024-02-27] VITALS (7 sets, daily range): BP systolic 99–176; BP diastolic 42–70; BMI 31.1; BMI 30.5
[2024-02-27 15:39] LABS: INR 1.02; PT 13.2 Sec (11.4-14.6)
[2024-02-27 15:40] LABS: APTT 31.7 Sec (23.4-35.0)
[2024-02-27 15:41] LABS: Hematocrit 23.5 % (37.0-47.0); Hemoglobin 7.8 g/dL (12.0-16.0); Mean Corp Hgb Conc. 33.2 g/dL (33.0-37.0); Mean Corpuscular Hgb 31.5 pg (27.0-31.0); Mean Corpuscular Volume 94.8 fL (81.0-99.0); Mean Platelet Volume 8.6 fL (7.4-10.4); Platelet Count 366 10^3/uL (130-400); Red Blood Cell Count 2.48 10^6/uL (4.20-5.40); Red Cell Dist. Width 16.3 % (11.5-14.5); White Blood Cell Count 25.8 10^3/uL (4.8-10.8)
[2024-02-27 16:15] LABS: ALT (SGPT) 11 U/L (0-35); AST (SGOT) 21 U/L (14-36); Albumin 4.1 g/dl (3.5-5.0); Alkaline Phosphatase 63 U/L (38-126); Blood Urea Nitrogen 21 mg/dl (7-17); Calcium 10.1 mg/dl (8.4-10.2); Carbon Dioxide 24 mmol/L (22-30); Chloride 99 mmol/L (98-107); Glucose 98 mg/dl (70-99); Potassium 4.6 mmol/L (3.5-5.1); Sodium 134 mmol/L (135-145); Total Bilirubin 0.4 mg/dl (0.2-1.3); Total Protein 6.8 g/dl (6.3-8.2)
[2024-02-27 17:03] LABS: % Basophils 0.3 % (0-2); % Eosinophils 1.5 % (0-6); % Immature Granulocytes 1.1 % (0-0.5); % Lymphocytes 6.4 % (20.5-51.1); % Monocytes 4.3 % (1.7-9.3); % Neutrophils 86.4 % (42.2-75.2); Absolute Basophils 0.1 10^3/uL (0-0.2); Absolute Eosinophils 0.4 10^3/uL (0-0.7); Absolute Immature Granulocytes 0.3 10^3/uL (0-0.05); Absolute Lymphocytes 1.6 10^3/uL (1.2-3.4); Absolute Monocytes 1.1 10^3/uL (0.1-0.6); Absolute Neutrophils 22.3 10^3/uL (1.4-6.5); Nucleated Red Blood Cells % 0 %
--- NOTE | 2024-02-27 18:15 | ED.GENMED ---
History of Present Illness
<MARCELINO Sanchez - Last Filed: 02/27/24 20:16>
General
Chief Complaint: Abnormal Lab Value
Source: patient
Exam Limitations: none
Time Seen by Provider: 02/27/24 17:28
Nursing documentation reviewed up to this point in time: agreed with
History of Present Illness
History of Present Illness:
Patient is an 78-year-old female past medical history of heart failure hypertrophic obstructive sleep apnea presents to the ER for evaluation. Patient reports she has felt very weak for the past 1 week. She had blood work done and was sent to the
ER for evaluation for low hemoglobin. She does report that 5 years ago she had a pill endoscopy and was told some vessel was bleeding. She reports for the past several years she has had dark stools though she also is on iron. She is not on blood
thinners other than aspirin. She denies any abdominal pain. She denies any fever or chills. She did have diarrhea last week 2 days however had a normal bowel movement today and none since.
She has so has had more shortness of breath with exertion.
Past History
<MARCELINO Sanchez - Last Filed: 02/27/24 20:16>
Past History
ED Past Medical History: HTN, Hypercholesterolemia and Hypothyroidism
ED Past Surgical History: Appendectomy and Gynecological
Social History
Tobacco: Non-smoker
Alcohol: None
Drug: None
Personal:
Living: with family
Employment: Retired
Family History
Family History: Other (Noncontributory)
Review of Systems
<MARCELINO Sanchez - Last Filed: 02/27/24 20:16>
Review of Systems
Allergies reviewed?: Yes
Other source history: family
All Other Systems: ROS reviewed and negative except as documented in HPI and ROS
Constitutional: Reports fatigue; Denies fever or chills
EENT: Reports no symptoms
Respiratory: Reports trouble breathing (mild [place] )
Cardiac: Reports no symptoms; Denies chest pain or palpitations
ABD/GI: Reports other (dark stools )
: Reports no symptoms
Musculoskeletal: Reports no symptoms
Skin: Reports no symptoms
Neurological: Reports no symptoms
Psychiatric: Reports no symptoms
Phy Exam
<MARCELINO Sanchez - Last Filed: 02/27/24 20:16>
General Physical Exam
General Presentation: no apparent distress
General age: appears stated age
General Skin: warm and dry
General Habitus: elderly
General Hydration: appears well hydrated
Cardiovascular Exam
Cardiovascular Exam: regular rate/rhythm and systolic murmur
Pulmonary Exam
Pulmonary Exam: lungs clear and no respiratory distress
Gastrointestinal Exam
Gastrointestinal Exam: other (Small amount of stool on rectal exam dark in color heme positive)
Neurological Exam
Neurological Exam: alert and oriented x3
Musculoskeletal Exam
Musculoskeletal Exam: full ROM
Skin Exam
Skin Exam: normal color and warm/dry
Psychiatric Exam
Psychiatric Exam: normal mood/affect
Course
<MARCELINO Sanchez - Last Filed: 02/27/24 20:16>
Orders/Labs/Results
Orders:
Orders
02/27/24 14:48
EKG [Electrocardiogram (*1)] Urgent
Reason for Study: Shortness of Breath
EKG- Treatment ONCE
02/27/24 15:06
Type+Screen Urgent
Complete Blood Count/With Diff Urgent
Comprehensive Metabolic Panel Urgent
NT-proBNP Urgent
Comment: ADD ON
PTT Urgent
Prothrombin Time Urgent
02/27/24 17:18
ABO2 Urgent
BBK Wristband Number:
Associate notified that ABO2 has been ordered: [id number]
Date: 02/27/24
Time: 15:42
[employer] Apprentice ID: [id number]
02/27/24 19:10
Add On- LAB Urgent
Tests Added?: cardiac BNP
Chest [CR Chest - 2 Views ] Urgent
Comment:
Reason For Exam: sob
Abnormal Lab Results
02/27/24
15:06
WBC 25.8 H 10^3/uL
(4.8-10.8)
RBC 2.48 L 10^6/uL
(4.20-5.40)
Hgb 7.8 L g/dL
(12.0-16.0)
Hct 23.5 L %
(37.0-47.0)
MCH 31.5 H pg
(27.0-31.0)
RDW 16.3 H %
(11.5-14.5)
Abs Immat Gran (auto) 0.3 H 10^3/uL
(0-0.05)
Absolute Neuts (auto) 22.3 H 10^3/uL
(1.4-6.5)
Absolute Monos (auto) 1.1 H 10^3/uL
(0.1-0.6)
Immature Gran % 1.1 H %
(0-0.5)
Neutrophils % 86.4 H %
(42.2-75.2)
Lymphocytes % 6.4 L %
(20.5-51.1)
Sodium 134 L mmol/L
(135-145)
BUN 21 H mg/dl
(7-17)
Creatinine 1.1 H mg/dL
(0.6-1.0)
Antibody Screen Positive A
(Negative)
02/27/24 15:06
02/27/24 15:06
Vital Signs
Initial and Last Documented VS:
Initial Vital Signs
Temp Pulse Resp BP Pulse Ox
97.6 F 77 16 99/63 95
02/27/24 14:44 02/27/24 14:44 02/27/24 14:44 02/27/24 14:44 02/27/24 14:44
Last Documented Vital Signs
Temp Pulse Resp BP Pulse Ox
97.6 F 96 19 176/70 93
02/27/24 14:44 02/27/24 19:04 02/27/24 19:04 02/27/24 19:04 02/27/24 19:04
<Starr Antoine MD - Last Filed: 02/27/24 20:20>
Orders/Labs/Results
Orders:
Orders
02/27/24 14:48
EKG [Electrocardiogram (*1)] Urgent
Reason for Study: Shortness of Breath
EKG- Treatment ONCE
02/27/24 15:06
Type+Screen Urgent
Complete Blood Count/With Diff Urgent
Comprehensive Metabolic Panel Urgent
NT-proBNP Urgent
Comment: ADD ON
PTT Urgent
Prothrombin Time Urgent
02/27/24 17:18
ABO2 Urgent
BBK Wristband Number:
Associate notified that ABO2 has been ordered: [id number]
Date: 02/27/24
Time: 15:42
[employer] Apprentice ID: [id number]
02/27/24 19:10
Add On- LAB Urgent
Tests Added?: cardiac BNP
Chest [CR Chest - 2 Views ] Urgent
Comment:
Reason For Exam: sob
Abnormal Lab Results
02/27/24
15:06
WBC 25.8 H 10^3/uL
(4.8-10.8)
RBC 2.48 L 10^6/uL
(4.20-5.40)
Hgb 7.8 L g/dL
(12.0-16.0)
Hct 23.5 L %
(37.0-47.0)
MCH 31.5 H pg
(27.0-31.0)
RDW 16.3 H %
(11.5-14.5)
Abs Immat Gran (auto) 0.3 H 10^3/uL
(0-0.05)
Absolute Neuts (auto) 22.3 H 10^3/uL
(1.4-6.5)
Absolute Monos (auto) 1.1 H 10^3/uL
(0.1-0.6)
Immature Gran % 1.1 H %
(0-0.5)
Neutrophils % 86.4 H %
(42.2-75.2)
Lymphocytes % 6.4 L %
(20.5-51.1)
Sodium 134 L mmol/L
(135-145)
BUN 21 H mg/dl
(7-17)
Creatinine 1.1 H mg/dL
(0.6-1.0)
Antibody Screen Positive A
(Negative)
02/27/24 15:06
02/27/24 15:06
Vital Signs
Initial and Last Documented VS:
Initial Vital Signs
Temp Pulse Resp BP Pulse Ox
97.6 F 77 16 99/63 95
02/27/24 14:44 02/27/24 14:44 02/27/24 14:44 02/27/24 14:44 02/27/24 14:44
Last Documented Vital Signs
Temp Pulse Resp BP Pulse Ox
97.6 F 96 19 176/70 93
02/27/24 14:44 02/27/24 19:04 02/27/24 19:04 02/27/24 19:04 02/27/24 19:04
<MARCELINO Sanchez - Last Filed: 02/27/24 20:16>
MDM/Problems Addressed
Differential Diagnosis Includes:
Not limited to anemia, GI bleed, hematological or oncological cause of anemia with elevated white count
MDM/Problems Addressed:
Patient is a 78-year-old female with history of CHF sleep apnea presents to the ER for weakness for the past week. She had outpatient blood work which showed low hemoglobin. She does report she has had dark stools for many years though she is on
iron. She is not on blood thinners other than aspirin. She denies any chest pain but does have some mild shortness of breath with exertion she does wear oxygen at CPAP at night. She denies any recent fever chills she had 2 episodes of diarrhea
last week but that has since resolved. She presents awake alert no acute distress anemic with a hemoglobin of 7.8 platelets normal white count however is 25,000 which is new from patient's last hemoglobin here of 12.12 August 2023. Patient does
have heme positive dark stools. Stable vital signs nontachycardic she is not hypoxic was placed on. With history of CHF will check BNP and chest x-ray and plan for admission consent obtained though patient does not transfusion presently.
<MARCELINO Sanchez - Last Filed: 02/27/24 20:16>
*Radiology
Radiology exam reviewed: radiology read reviewed
*Pulse Oximetry
Patient hypoxic: no
*EKG
Interpreted by ED Provider?: Yes
Interpretation: abnormal
Comparison EKG: no changes
Heart Rate: 76
Rate: normal
Rhythm: sinus
Ischemia: no ischemia
*Critical Care Note
Total Time (30-74mins, 75-104mins- exclusive of procedures): Not Applicable
Data Reviewed
Review of Other/Old Records Reveals: Discharge Summary and Other (Previous labs)
ED Attending Note
<MARCELINO Sanchez - Last Filed: 02/27/24 20:16>
-
Portions of this chart may have been created with voice recognition software.� Occasional wrong word or��sound alike� substitutions may have occurred due to the inherent limitations of voice recognition software.
<Starr Antoine MD - Last Filed: 02/27/24 20:20>
ED Attending Note
Patient seen and examined by attending physician: Yes
I performed the substantive portion of visit, reviewed & personally made and approve the management plan that is documented in note by myself or NOEMY.: Yes
ED Attending Note:
78-year-old female presents to the emergency department with complaints of malaise, weakness, and shortness of breath for about a week. Patient was sent to the emergency department given anemia that was noted on outpatient blood testing on Tuesday.
Patient takes iron so she says her stools are always dark, no bright red blood per rectum, no chest pain, no fever or chills. On exam, patient awake alert pleasant, without complaints. Has had GI bleed noted in the past status post pill endoscopy,
concern patient's symptoms are related to an upper GI bleed. Will admit, telemetry, PPI, GI consult. Stable at this time we will hold off on transfusion
Discharge Plan
Departure
Patient Disposition: Admit
Date of Disposition: 02/27/24
Time of Disposition: 20:15
Admit to: Med/Surg
Admit to doctor: hospitalist
Presentation/result/management discussed w/ accepting MD/DO: Hospitalist
Patient with high blood pressure during this ER visit?: Yes
Condition: Fair
Covid-19: Not Applicable
Discharge Problem:
Anemia, Heme positive stool, dyspnea on exertion
Prescriptions:
No Action
aspirin 81 MG tablet,delayed release (DR/EC)
81 mg PO QPM
levocetirizine 5 MG tablet
5 mg PO QPM
cyanocobalamin (vitamin B-12) [Vitamin B-12] 1,000 mcg Tablet
1,000 mcg PO QPM
rosuvastatin 20 mg Tablet
20 mg PO DAILY
lisinopril 20 mg Tablet
20 mg PO DAILY Qty: 30 0RF
diltiazem HCl 120 mg Capsule,Extended Release 24hr
120 mg PO DAILY Qty: 30 0RF
fluticasone propionate [Flonase Allergy Relief] 50 mcg/actuation spray,suspension
1 spray intranasal DAILY Qty: 16 0RF
Theragen Tablet
1 tab PO QPM
acetaminophen [Tylenol Extra Strength] 500 mg Tablet
1,000 mg PO Q6HPRN PRN (Reason: mild pain)
levothyroxine 88 mcg Tablet
88 mcg PO DAILY
montelukast 10 mg Tablet
10 mg PO QPM
carboxymethylcellulose sodium [Refresh Liquigel] 1 % Drops, Liquid Gel
1 drp BOTH EYES HS
ferrous sulfate 134 mg (27 mg iron) Tablet
134 mg PO DAILY
Systane Ultra 0.4-0.3 % Drops
1 drp BOTH EYES DAILY
calcium carbonate-vitamin D3 [Calcium 600 + D(3)] 600 mg-10 mcg (400 unit) Tablet
2 tab PO DAILY
metoprolol tartrate 50 mg tablet
75 mg PO BID
Patient Comments:
02/27/24: Patient fills 50mg tablets, but states she take 1.5 tabs twice a day for total of 300mg daily. Toprol XL filled same day as Lopressor, may be mixing up the two, since Toprol XL was 100mg tablets.
Referrals:
Liliana Lassiter MD [Family Provider] -
Interventions
Interventions:
*Risk Screen - Suicide Last Done: 02/27/24 17:31
*General Assessment Last Done: 02/27/24 17:31
*Neglect/Abuse Screening Last Done: 02/27/24 17:31
ED- Fall Risk Assessment Last Done: 02/27/24 17:31
*ED COVID-19 Vaccine History Last Done: 02/27/24 17:31
Discharge Date and Time
Print Language: LITHUANIAN
[2024-02-27 20:15] LABS: NT-proBNP 920 pg/ml
--- NOTE | 2024-02-27 21:25 | HPS.HSE ---
Addendum entered and electronically signed by Emerson Carr DO 02/27/24 22:50:
Patient seen and examined independently. Agree with findings and plan as set forth by Karolyn Benites PA-C.
Patient is an 78y F with PMH significant for HOCM, HTN and DEEJAY who presents to ED for evaluation of low Hgb. Patient states that she has felt generally weak and fatigued for the past week or so. She had labs done by her PCP late lat week and
today was called and advised to come to the ED due to Hgb that was significantly lower than previous.
Patient states that she 'always' has very dark stools - for years. She has a prior history of small bowel 'oozing' bleeding discovered on capsule endoscopy about 5 years ago - no definitive treatment was pursued at that time.
Hgb last week it was 7.1 and today in the ED is 7.8.
Patient also has leukocytosis, prior history of unexplained adenopathy and several pound weight loss over the past 6 months or so.
Previous Hgb values have generally been quite high - 15-16 on most recent checks.
Ass:
Symptomatic Normocytic Anemia
History of Small Bowel Bleeding
Leukocytosis
Chronic HFpEF / HOCM
Benign Hypertension
Hypothyroidism
DEEJAY / Nocturnal Hypoxemia
Plan:
Admit for further evaluation and treatment.
Transfuse 1 unit PRBCs for now.
GI evaluation - ? ongoing / increased bleeding from sm bowel source.
Try to obtain prior capsule endoscopy records.
? underling hematologic process given prior polycythemia, leukocytosis, unexplained adenopathy, etc.
Heme evaluation for additional recommendations.
Follow H&H and additional PRBCs if needed.
Follow for any new / worsening symptoms.
Continue usual outpatient medications.
Follow I/Os, daily weights, etc - appears euvolemic at present.
Original Note:
Family Physician
-
Family Physician: Liliana Lassiter MD
Chief Complaint
-
Weakness and Shortness of Breath
History of Present Illness
Pt is an 78 yo F with PMH HFpEF, HOCM, HTN, and DEEJAY on CPAP c/o weakness x 1 week. Pt reports diarrhea and feeling unwell (weakness, fatigue, chills) on Tuesday, feeling fine on Tuesday, feeling sick with diarrhea on prompting her to see
her PCP on Tuesday. Blood work completed on Tuesday revealed Hgb 7.1 and she was advised to go to the ED for additional evaluation and treatment. She describes dark stool attributed to Fe supplementation. She states she completed a pill endoscopy
(completed by Dr Palafox [place]) years ago which revealed a tiny leakage from a vein. Pt's last colonoscopy was 2020 - normal. She has a hx of adenomatous polyps and is on a q5 yr schedule with next colonoscopy at age 79. She also c/o of SOB
beginning the same time as other sxs. Pt states she has CHF and is on a strict low Na diet and weighs herself regularly. She admits to 8 lb weight loss over the past 6+ months. She denies fever, chest pain, palpitations, diaphoresis, abdominal pain,
N/V, peripheral edema, and paresthesia.
Medical History
Past Medical History
Past Medical History: Reports Other
Additional Past Medical History:
Chronic HFpEF
Hypertrophic Obstructive Cardiomyopathy
Essential Hypertension
Hyperlipidemia
Hypothyroidism
Obstructive Sleep Apnea
Past Surgical History: Reports Other
Additional Past Surgical History:
Appendectomy
Tubal Ligation
Social History
Tobacco: Former Smoker (Quit over 20 years)
Alcohol: Occasional
Living: With Family
Family History
Family History: Not pertinent
Allergies / Home Medications
Allergies reflects when Allergies were last updated in [facility].
Home Medications with original date entered in [facility]
Allergy/Medication List:
Allergies
Allergy/AdvReac Type Severity Reaction Status Date / Time
prednisone Allergy hypertensio Verified 02/27/24 14:44
n
Home Medications
aspirin 81 mg tablet,delayed release 81 mg PO QPM Blood Clot Prevention/Tx 06/23/15
levocetirizine 5 mg tablet 5 mg PO QPM Allergies 06/23/15
cyanocobalamin (vitamin B-12) 1,000 mcg tablet (Vitamin B-12) 1,000 mcg PO QPM Supplement 08/08/23
rosuvastatin 20 mg tablet 20 mg PO DAILY High Cholesterol 08/08/23
diltiazem HCl 120 mg capsule,extended release 24 hr 120 mg PO DAILY #30 caps 08/11/23
lisinopril 20 mg tablet 20 mg PO DAILY #30 tabs 08/11/23
fluticasone propionate 50 mcg/actuation nasal spray,suspension (Flonase Allergy Relief) 1 spray intranasal DAILY #16 grams 08/12/23
acetaminophen 500 mg tablet (Tylenol Extra Strength) 1,000 mg PO Q6HPRN PRN mild pain 02/27/24
calcium carbonate 600 mg-vitamin D3 10 mcg (400 unit) tablet (Calcium 600 + D(3)) 2 tab PO DAILY 02/27/24
carboxymethylcellulose sodium 1 % eye liquid gel drops (Refresh Liquigel) 1 drp BOTH EYES HS 02/27/24
ferrous sulfate 134 mg (27 mg iron) tablet 134 mg PO DAILY 02/27/24
levothyroxine 88 mcg tablet 88 mcg PO DAILY 02/27/24
metoprolol tartrate 50 mg tablet 75 mg PO BID 02/27/24
montelukast 10 mg tablet 10 mg PO QPM 02/27/24
peg 400-propylene glycol 0.4 %-0.3 % eye drops (Systane Ultra) 1 drp BOTH EYES DAILY 02/27/24
therapeutic multivitamin 1 tab PO QPM 02/27/24
Review of Systems
-
A 12 point ROS was completed and negative except as noted: Yes
Constitutional: Denies Fever or Chills
Respiratory: Reports Trouble Breathing; Denies Cough
Cardiac: Denies Chest Pain or Palpitations
Abdomen/GI: Reports Black Stools; Denies Abdominal Pain
Physical Exam
Vital Signs
Vital Signs
Temp Pulse Resp BP Pulse Ox
97.6 F 101 20 129/42 98
02/27/24 14:44 02/27/24 20:45 02/27/24 20:45 02/27/24 20:00 02/27/24 20:45
Physical Exam
General: Comfortable and Conversant
HEENT: Anicteric and Moist mucous membranes
Respiratory: Clear and Non Labored Respirations
Cardiac: S1/S2, Regular Rhythm and Murmur
GI: Soft and Non Tender
Rectal: Other (Dark heme-positive stool per ED provider)
Musculoskeletal: No Clubbing, No Cyanosis and No Edema
Skin: Warm and Dry
Neuro: Awake, Alert, Oriented and Nonfocal/grossly intact
Psych: Calm
Laboratory Results
-
02/27/24 15:06
02/27/24 15:06
Laboratory Results
PT 13.2 Sec (11.4-14.6) 02/27/24 15:06
INR 1.02 02/27/24 15:06
APTT 31.7 Sec (23.4-35.0) 02/27/24 15:06
Total Bilirubin 0.4 mg/dl (0.2-1.3) 02/27/24 15:06
AST 21 U/L (14-36) 02/27/24 15:06
ALT 11 U/L (0-35) 02/27/24 15:06
Alkaline Phosphatase 63 U/L (38-126) 02/27/24 15:06
Data Reviewed
-
Lab Data: Labs Reviewed by me
Old Records: Reviewed
Impression/Plan
-
Symptomatic Anemia - Differential includes GI Bleed in setting of Heme-positive stool vs. Hematologic Malignancy in setting of Leukocytosis and Hilar/Mediastinal Lymphadenopathy
-Consult Hematology
-Consult GI
-Transfuse 1 unit PRBCs
-Trend serial Hgb
-Continue Protonix IV BID
-Allow clear liquids
-Attempt to obtain records of prior capsule study, and prior colonoscopy
Chronic HFpEF
Hypertrophic Obstructive Cardiomyopathy
-Monitor Is&Os and Daily Weights
Essential Hypertension
-Continue Cardizem, Metoprolol and Lisinopril
Hyperlipidemia
-Continue rosuvastatin
Hypothyroidism
-Continue Levothyroxine
Obstructive Sleep Apnea
-Continue CPAP
DVT proph: SCDs
Code Status: DNR
[2024-02-27] MEDS: PROTONIX IV 80 MG IV (22:05)
--- NOTE | 2024-02-27 23:15 | PTCARENOTE ---
Pt arrived to room 436-02. Pt ambulated x1 assistance to bed. Pt AAOx3, VSS. Pt in no signs of acute distress, respirations regular. Pt oriented to room, call mccarthy placed within reach.
[2024-02-28] VITALS (11 sets, daily range): BP systolic 102–148; BP diastolic 50–83; PULSE 53–76; BMI 30.2
[2024-02-28] MEDS: SYNTHROID 88 MCG PO (04:52)
--- NOTE | 2024-02-28 06:57 | CON.GI ---
Addendum entered and electronically signed by Yudi Nelson Do, MD 02/28/24 14:49:
I saw and examined the patient.
The LOAN EXAMINER's note was reviewed and I agree with the note.
Comment: Nereyda is an 78yo W with h/o CKD, HTN, CHF and mild who was admitted for symptomatic anemia with chronically dark stools on oral iron. Her last transfusion was in 2015 for similar issues. She had GI eval at [facility] with
EGD/colonoscopy/capsule that showed 2 small nonbleeding AVMs in mid jejunum. She declines cautery. After transfusion of blood yesterday she feels much improved. Vitals reviewed. Labs show severe iron def anemia Hbg 7 range.
Impression
- Acute iron def anemia
ddx includes AVM, PUD or polyps
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
2015 at [place] EGD/colon/VCE
- CHF
- CKD
- HTN
- Mild
- DEEJAY
- Appendectomy
Recommendations
- C/w PPI IV BID
- CLD NPO at [place] for Enteroscopy/colonoscopy tomorrow
- [place] to start now
- Serial H/H
- Appreciate hematology recs, may benefit from IV iron
Family updated bedside. Will follow with you
Original Note:
Consultation
-
Date/Time Consultation Requested: 02/27/24 2230
Date/Time Consultation Performed: 02/28/24 1030
Requesting Provider: Karolyn Benites PA-C
Performing Provider: MARCELINO Greenwood, Yudi Pearson MD
Reason for Consultation: anemia
Medical History
Chief Complaint / HPI
Chief Complaint: weakness
History of Present Illness:
Pt is an 78yo with hx CKD, HTN, CHF, hypertrophic obstructive CM, moderate to severe MR, mild , hypercholesterolemia, hypothyroidism, sleep apnea, prior anemia with hematology follow and prior iron infusions, jejunal AVM's, diverticulosis, and
hemorrhoids with onset of weakness. She was noted on outpatient drop in hbg and sent to ER. In reviewing labs hbg 08/2023 with hbg 15.9 now down to 7.8 on admission. She was noted with dark stools while on iron supplement and heme + in ER. In
reviewing with hematology per [facility] [place] records last colonoscopy 2013 with diverticulosis and hemorrhoids. In 2016 with microcytic, iron deficiency anemia. EGD was completed mild bile reflux and duodenum was normal bx neg Pt proceeded to capsule
with 2 small non bleeding AVM's in mid jejunum.
In reviewing with patient stools chronically dark. She has variable stools with constipation and diarrhea but admits to some loose stool last week. She otherwise denies dysphagia, GERD, nausea, vomiting , abdominal pain or red stools. On
daily ASA no other NSAIDs or anticoagulation. Iron studies with noted iron deficiency.
Past Medical History
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
Past Surgical History: Appendectomy and Gynecological
Social History
Tobacco: Former Smoker
Alcohol: Occasional
Drug: None
Living: With Family
Employment: Retired
Family History
Family History: Other (no family hx colon Ca or polyps )
Allergies / Home Medications
Allergy/AdvReac Type Severity Reaction Status Date / Time
prednisone Allergy hypertensio Verified 02/27/24 14:44
n
�Medication �Instructions �Recorded
aspirin 81 mg tablet,delayed 81 mg PO QPM Blood Clot 06/23/15
release Prevention/Tx
levocetirizine 5 mg tablet 5 mg PO QPM Allergies 06/23/15
cyanocobalamin (vitamin B-12) 1,000 mcg PO QPM Supplement 08/08/23
1,000 mcg tablet (Vitamin B-12)
rosuvastatin 20 mg tablet 20 mg PO DAILY High Cholesterol 08/08/23
diltiazem HCl 120 mg 120 mg PO DAILY #30 caps 08/11/23
capsule,extended release 24 hr
lisinopril 20 mg tablet 20 mg PO DAILY #30 tabs 08/11/23
fluticasone propionate 50 1 spray intranasal DAILY #16 grams 08/12/23
mcg/actuation nasal
spray,suspension (Flonase Allergy
Relief)
acetaminophen 500 mg tablet 1,000 mg PO Q6HPRN PRN mild pain 02/27/24
(Tylenol Extra Strength)
calcium carbonate 600 mg-vitamin 2 tab PO DAILY 02/27/24
D3 10 mcg (400 unit) tablet
(Calcium 600 + D(3))
carboxymethylcellulose sodium 1 % 1 drp BOTH EYES HS 02/27/24
eye liquid gel drops (Refresh
Liquigel)
ferrous sulfate 134 mg (27 mg 134 mg PO DAILY 02/27/24
iron) tablet
levothyroxine 88 mcg tablet 88 mcg PO DAILY 02/27/24
metoprolol tartrate 50 mg tablet 75 mg PO BID 02/27/24
montelukast 10 mg tablet 10 mg PO QPM 02/27/24
peg 400-propylene glycol 0.4 %-0.3 1 drp BOTH EYES DAILY 02/27/24
% eye drops (Systane Ultra)
therapeutic multivitamin 1 tab PO QPM 02/27/24
Review of Systems
-
History Source: Patient and Family
Constitutional: Reports Weight Loss (few lb with low Na diet )
EENT: Reports No Symptoms
Respiratory: Reports No Symptoms
Cardiac: Reports No Symptoms
Abdomen/GI: Reports Diarrhea (loose stool last week ), Constipated and Black Stools (chronic dark stools with iron use )
: Reports No Symptoms
Musculoskeletal: Reports No Symptoms
Skin: Reports No Symptoms
Neurological: Reports Weakness
Endocrine: Reports No Symptoms
Hematologic/Lymphatic: Reports Bleeding
Vital Signs
Temp Pulse Resp BP Pulse Ox
98.1 F 67 18 129/50 100
02/28/24 04:38 02/28/24 04:38 02/28/24 04:38 02/28/24 04:38 02/28/24 03:12
Physical Exam
Exam
General: Well Developed, Well Nourished and No Apparent Distress
HEENT: Normocephalic and Anicteric
Respiratory: Clear
Cardiac: Regular Rhythm
GI: Soft and Non Distended
Musculoskeletal: No Clubbing and No Cyanosis
Skin: Warm and Dry
Neuro: Awake, Alert and AO x 3
Psych: Calm
Results
WBC 25.8 10^3/uL (4.8-10.8) H 02/27/24 15:06
Hgb 7.8 g/dL (12.0-16.0) L 02/27/24 15:06
Hct 23.5 % (37.0-47.0) L 02/27/24 15:06
MCV 94.8 fL (81.0-99.0) 02/27/24 15:06
Plt Count 366 10^3/uL (130-400) 02/27/24 15:06
Absolute Neuts (auto) 22.3 10^3/uL (1.4-6.5) H 02/27/24 15:06
PT 13.2 Sec (11.4-14.6) 02/27/24 15:06
INR 1.02 02/27/24 15:06
APTT 31.7 Sec (23.4-35.0) 02/27/24 15:06
Sodium 134 mmol/L (135-145) L 02/27/24 15:06
Potassium 4.6 mmol/L (3.5-5.1) 02/27/24 15:06
Chloride 99 mmol/L (98-107) 02/27/24 15:06
Carbon Dioxide 24 mmol/L (22-30) 02/27/24 15:06
BUN 21 mg/dl (7-17) H 02/27/24 15:06
Creatinine 1.1 mg/dL (0.6-1.0) H 02/27/24 15:06
Calcium 10.1 mg/dl (8.4-10.2) 02/27/24 15:06
Total Bilirubin 0.4 mg/dl (0.2-1.3) 02/27/24 15:06
AST 21 U/L (14-36) 02/27/24 15:06
ALT 11 U/L (0-35) 02/27/24 15:06
Alkaline Phosphatase 63 U/L (38-126) 02/27/24 15:06
Diagnostic Image Results:
Prior GI Procedures:
EGD: 2016 [facility] [place] completed mild bile reflux and duodenum was normal bx neg
capsule 2016 2 small non bleeding AVM's in mid jejunum pt did not recall double balloon
Colonoscopy: 2014 with diverticulosis and hemorrhoids.
Assessment / Plan
-
Pt is an 78yo with hx CKD, HTN, CHF, hypertrophic obstructive CM, moderate to severe MR, mild , hypercholesterolemia, hypothyroidism, sleep apnea, prior anemia with hematology follow and prior iron infusions, jejunal AVM's, diverticulosis, and
hemorrhoids with onset of weakness. She was noted on outpatient drop in hbg and sent to ER. In reviewing labs hbg 08/2023 with hbg 15.9 now down to 7.8 on admission. She was noted with dark stools while on iron supplement and heme + in ER. In
reviewing with hematology per [facility] [place] records last colonoscopy 2013 with diverticulosis and hemorrhoids. In 2016 with microcytic, iron deficiency anemia. EGD was completed mild bile reflux and duodenum was normal bx neg Pt proceeded to capsule
with 2 small non bleeding AVM's in mid jejunum.
-symptomatic iron deficiency anemia
-hx untreated jejunal AVM's 2016 pt did not recall double balloon
-HFpEF
-hypertrophic obstructive CM due for follow up with [facility]
-moderate to severe
other med problems:
-hx colon polyps
-CKD
-mild
-hypercholesterolemia
-hypothyroidism
-sleep apnea
-diverticulosis
-hemorrhoids
PLAN:
Etiology of anemia related to slow GI blood loss --AVM's with hx valvular disease and prior noted jejunal AVM on capsule, PUD, mass vs other
appears compensated with hx cardiac disease and feeling better today
s/p transfusion
trend hbg
cont PPI
will review with dr. Pearson for EGD +/- capsule and timing
NPO pending time for procedure
heme eval for continued hbg follow and iron management
updated family at bedside
-
-
Thank you for consultation and allowing me to participate in the patient's care. Please call the deputy coroner investigator GI physician during the after hours with any questions or concerns.
[2024-02-28 07:32] LABS: Hematocrit 27.5 % (37.0-47.0); Hemoglobin 9.1 g/dL (12.0-16.0); Mean Corp Hgb Conc. 33.1 g/dL (33.0-37.0); Mean Corpuscular Hgb 30.5 pg (27.0-31.0); Mean Corpuscular Volume 92.3 fL (81.0-99.0); Mean Platelet Volume 8.5 fL (7.4-10.4); Platelet Count 307 10^3/uL (130-400); Red Blood Cell Count 2.98 10^6/uL (4.20-5.40); Red Cell Dist. Width 17.1 % (11.5-14.5); White Blood Cell Count 13.6 10^3/uL (4.8-10.8)
[2024-02-28] MEDS: LOPRESSOR 75 MG PO ×2 (08:44→21:51)
[2024-02-28] MEDS: CRESTOR 20 MG PO (08:44)
[2024-02-28] MEDS: ZESTRIL PO (08:47)
[2024-02-28] MEDS: PROTONIX IV 40 MG IV ×2 (08:48→21:52)
[2024-02-28] MEDS: CARDIZEM CD 120 MG PO (08:48)
[2024-02-28 08:49] LABS: Blood Urea Nitrogen 16 mg/dl (7-17); Calcium 9.5 mg/dl (8.4-10.2); Carbon Dioxide 25 mmol/L (22-30); Chloride 104 mmol/L (98-107); Estimated Creatinine Clearance 34 ml/min; Glucose 89 mg/dl (70-99); Potassium 4.3 mmol/L (3.5-5.1); Sodium 138 mmol/L (135-145); eGFR 56.95
[2024-02-28] MEDS: NSS (PRESERVATIVE FREE) 10 ML IV ×2 (08:49→21:52)
--- NOTE | 2024-02-28 09:59 | CON.ONC ---
Impression
Impression
Pt is an 78 YO F with PMH significant for HOCM, HTN and DEEJAY presenting to with progressive weakness, SOB and low Hb.
Plan
Plan
- patiet s/p 1 unit blood. Hb now at 9.1, continue to monitor.
- GI eval pending. Appreciate inputs
- Patient pending Iron studies. Follow up on results.
Patient History
History of Present Illness
Pt is an 78 YO F with PMH significant for HOCM, HTN and DEEJAY presenting to with progressive weakness, SOB and low Hb. She states she has a history of dark stools and during capsule endoscopy was seen to have bleeding in GI tract 5 years ago. She
noticed no bright red blood with stool recently in the bowl or with wiping. Last night she was transfused one unit of blood, Hb 9.1 today. She is compliant with CPAP, but reports progressive weakness and SOB over last month, with previously
identified hilar adenopathy and weight loss. Today she reports feeling better than yesterday, without headaches, NVD, constipation, abdominal pain, CP or numbness and tingling. She had a few days of diarrhea without blood last week, at that time
COVID -, now resolved.
Past-Medical/Surgical History
HOCM
DEEJAY
HTN
Patient Medication
�Medication �Instructions �Recorded �Confirmed �Last Taken �Type
aspirin 81 mg tablet,delayed 81 mg PO QPM Blood Clot 06/23/15 02/27/24 06/22/15 History
release Prevention/Tx
levocetirizine 5 mg tablet 5 mg PO QPM Allergies 06/23/15 02/27/24 06/22/15 History
cyanocobalamin (vitamin B-12) 1,000 mcg PO QPM Supplement 08/08/23 02/27/24 Unknown History
1,000 mcg tablet (Vitamin B-12)
rosuvastatin 20 mg tablet 20 mg PO DAILY High Cholesterol 08/08/23 02/27/24 Unknown History
diltiazem HCl 120 mg 120 mg PO DAILY #30 caps 08/11/23 02/27/24 Unknown Rx
capsule,extended release 24 hr
lisinopril 20 mg tablet 20 mg PO DAILY #30 tabs 08/11/23 02/27/24 Unknown Rx
acetaminophen 500 mg tablet 1,000 mg PO Q6HPRN PRN mild pain 02/27/24 02/27/24 02/27/24 History
(Tylenol Extra Strength)
calcium carbonate 600 mg-vitamin 2 tab PO DAILY Supplement 02/27/24 02/27/24 Unknown History
D3 10 mcg (400 unit) tablet
(Calcium 600 + D(3))
carboxymethylcellulose sodium 1 % 1 drp BOTH EYES HS Eye Condition 02/27/24 02/27/24 Unknown History
eye liquid gel drops (Refresh
Liquigel)
ferrous sulfate 134 mg (27 mg 134 mg PO DAILY Supplement 02/27/24 02/27/24 Unknown History
iron) tablet
levothyroxine 88 mcg tablet 88 mcg PO DAILY Thyroid 02/27/24 02/27/24 Unknown History
metoprolol tartrate 50 mg tablet 75 mg PO BID Blood Pressure 02/27/24 02/28/24 Unknown History
montelukast 10 mg tablet 10 mg PO QPM Allergies 02/27/24 02/27/24 Unknown History
peg 400-propylene glycol 0.4 %-0.3 1 drp BOTH EYES DAILY Eye Condition 02/27/24 02/27/24 Unknown History
% eye drops (Systane Ultra)
therapeutic multivitamin 1 tab PO QPM Supplement 02/27/24 02/27/24 Unknown History
fluticasone propionate 50 1 spray intranasal DAILY Congestion 02/28/24 02/27/24 Unknown History
mcg/actuation nasal
spray,suspension (Flonase Allergy
Relief)
Active Medications
Generic Name Dose Route Start Last Admin
Trade Name Freq PRN Reason Stop Dose Admin
Acetaminophen 650 mg 02/27/24 22:35
Acetaminophen 325 Mg Tablet PO 03/26/24 22:34
Q4HPRN PRN
mild pain/ fever>100.5F
Cyanocobalamin 1,000 mcg 02/28/24 18:00
Cyanocobalamin 1,000 Mcg Tablet PO 03/27/24 17:59
QPM MICHI
Diltiazem HCl 120 mg 02/28/24 08:00 02/28/24 08:48
Diltiazem 120 Mg Extended Release (24 H) Capsule PO 03/27/24 07:59 120 mg
DAILY MICHI Administration
Levothyroxine Sodium 88 mcg 02/28/24 06:00 02/28/24 04:52
Levothyroxine 88 Mcg Tablet PO 03/27/24 05:59 88 mcg
DAILY @ 0600 MICHI Administration
Lisinopril 20 mg 02/28/24 08:00 02/28/24 08:47
Lisinopril 20 Mg Tablet PO 03/27/24 07:59 Not Given
DAILY MICHI
Metoprolol Tartrate 75 mg 02/28/24 08:00 02/28/24 08:44
Metoprolol 50 Mg Regular Release Tablet PO 03/27/24 07:59 75 mg
BID MICHI Administration
Montelukast Sodium 10 mg 02/28/24 18:00
Montelukast Sodium 10 Mg Tablet PO 03/27/24 17:59
QPM MICHI
Pantoprazole Sodium 40 mg 02/28/24 08:00 02/28/24 08:48
Pantoprazole Sodium 40 Mg/10 Ml Vial IV 03/27/24 07:59 40 mg
BID MICHI Administration
Rosuvastatin Calcium 20 mg 02/28/24 08:00 02/28/24 08:44
Rosuvastatin (Crestor) 20 Mg Tablet PO 03/27/24 07:59 20 mg
DAILY MICHI Administration
Sodium Chloride 10 ml 02/28/24 08:00 02/28/24 08:49
Sodium Chloride 0.9% (Preservative Free) 10 Ml Vial IV 03/27/24 07:59 10 ml
BID MICHI Administration
Sodium Chloride 0 flush 02/27/24 23:00
Sodium Chloride 0.9% (Flush) Syringe IV 03/26/24 22:59
PER PROTOCOL MICHI
Review of Systems
-
History Source: Patient
Constitutional: Reports Weakness
EENT: Reports No Symptoms
Respiratory: Reports Trouble Breathing (mild, intermittent)
Cardiac: Reports No Symptoms
GI: Reports Black Stools (chronic )
Skin: Reports No Symptoms
Neuro: Reports Weakness
Physical Exam
-
General: Well Developed, Well Nourished, No Apparent Distress and Conversant
Pulmonary: Clear
GI: Soft
Musculoskeletal: No Clubbing, No Cyanosis and No Edema
Skin: Warm and Dry
Psych: Calm
Labs
Lab Results
WBC 13.6 10^3/uL (4.8-10.8) H 02/28/24 07:09
RBC 2.98 10^6/uL (4.20-5.40) L 02/28/24 07:09
Hgb 9.1 g/dL (12.0-16.0) L 02/28/24 07:09
Hct 27.5 % (37.0-47.0) L 02/28/24 07:09
MCV 92.3 fL (81.0-99.0) 02/28/24 07:09
MCH 30.5 pg (27.0-31.0) 02/28/24 07:09
MCHC 33.1 g/dL (33.0-37.0) 02/28/24 07:09
RDW 17.1 % (11.5-14.5) H 02/28/24 07:09
Plt Count 307 10^3/uL (130-400) 02/28/24 07:09
MPV 8.5 fL (7.4-10.4) 02/28/24 07:09
Abs Immat Gran (auto) 0.3 10^3/uL (0-0.05) H 02/27/24 15:06
Absolute Neuts (auto) 22.3 10^3/uL (1.4-6.5) H 02/27/24 15:06
Absolute Lymphs (auto) 1.6 10^3/uL (1.2-3.4) 02/27/24 15:06
Absolute Monos (auto) 1.1 10^3/uL (0.1-0.6) H 02/27/24 15:06
Absolute Eos (auto) 0.4 10^3/uL (0-0.7) 02/27/24 15:06
Absolute Basos (auto) 0.1 10^3/uL (0-0.2) 02/27/24 15:06
Immature Gran % 1.1 % (0-0.5) H 02/27/24 15:06
Neutrophils % 86.4 % (42.2-75.2) H 02/27/24 15:06
Lymphocytes % 6.4 % (20.5-51.1) L 02/27/24 15:06
Monocytes % 4.3 % (1.7-9.3) 02/27/24 15:06
Eosinophils % 1.5 % (0-6) 02/27/24 15:06
Basophils % 0.3 % (0-2) 02/27/24 15:06
Creatinine 1.0 mg/dL (0.6-1.0) 02/28/24 07:09
Vital Signs
Vital Signs
Temp Pulse Resp BP Pulse Ox
97.9 F 62 18 118/58 97
02/28/24 07:27 02/28/24 07:27 02/28/24 07:02/28/24 07:27 02/28/24 07:27
[2024-02-28 10:21] LABS: Iron < 20 ug/dl (37-170)
[2024-02-28 10:27] LABS: Total Iron Binding Capacity 306 ug/dl (265-497)
[2024-02-28 11:33] LABS: Ferritin 53.1 ng/ml (11.1-264.0)
--- NOTE | 2024-02-28 12:43 | W.PN.HOSP.TC ---
Today's Communication/Plan
-
apprec GI/heme
trend HGB
Assessment / Plan
Assessment / Plan
pt is an 78 year old female
Symptomatic Anemia - Differential includes GI Bleed in setting of Heme-positive stool from AVMs vs. Hematologic Malignancy in setting of Leukocytosis and Hilar/Mediastinal Lymphadenopathy --apprec heme/GI--await decision for scopes--trend H&H--cont
PPI
Chronic HFpEF/Hypertrophic Obstructive Cardiomyopathy--Monitor Is&Os and Daily Weights-- no exacerbation
Essential Hypertension-Continue Cardizem, Metoprolol and Lisinopril
Hyperlipidemia-Continue rosuvastatin
Hypothyroidism-Continue Levothyroxine
Obstructive Sleep Apnea-Continue CPAP
DVT proph: SCDs
Code Status: DNR
Anticipated Discharge: > 48 hours
Subjective/Interval History
-
Date of Service: February 28, 2024
pt without c/o--feels better after the blood
Objective Data
-
Labs:
Laboratory Results
02/28/24
07:09
WBC 13.6 H
Hgb 9.1 L
Hct 27.5 L
Plt Count 307
Sodium 138
Potassium 4.3
Chloride 104
Carbon Dioxide 25
BUN 16
Creatinine 1.0
Glucose 89
Calcium 9.5
Vital Signs:
max temp for 24 hours
02/28/24
04:38
Temp 98.1 F
Vital Signs
Temp Pulse Resp BP Pulse Ox
97.9 F 55 19 120/55 93
02/28/24 11:17 02/28/24 11:17 02/28/24 11:17 02/28/24 11:17 02/28/24 11:17
I&O
02/27/24 02/28/24 02/29/24
06:59 06:59 06:59
Intake Total 730 / 730
Balance 730 / 730
Review of Systems
-
All other systems: Reviewed and negative
Physical Exam
-
General: Well Developed, Well Nourished and No Apparent Distress
HEENT: Normocephalic and Atraumatic
Respiratory: Clear to Auscultation; Negative Wheezes or Rhonchi
Cardiac: Regular Rhythm and S1/S2; Negative Murmur
GI: Soft, Nontender, Nondistended and Normal Bowel Sounds
Musculoskeletal: No Clubbing, No Cyanosis and No Edema
Neuro: Awake and Alert
--- NOTE | 2024-02-28 13:56 | CM ---
Patient seen at bedside with physician and patient son, daughter in law. Patient indicated that her grand-daughter lives with her. Patient PCP is Dr. Lassiter, and she uses the CPAP from home. Patient has home O2 at night only and does not remember
the name of the provider. Patient has no VN at this time. Patient states that she plans to return home with no needs at this time.
Plan; home with VN vs home with no needs; watch for home O2 needs.
[2024-02-28 14:02] LABS: Hematocrit 29.4 % (37.0-47.0); Hemoglobin 9.8 g/dL (12.0-16.0)
[2024-02-28] MEDS: NULYTELY SOLUTION 4 LITERS PO (15:16)
[2024-02-28] MEDS: DULCOLAX 10 MG PO (15:18)
[2024-02-28] MEDS: FERRLECIT 110 MG IV (16:53)
[2024-02-28] MEDS: SINGULAIR 10 MG PO (16:57)
[2024-02-28] MEDS: VITAMIN B-12 1000 MCG PO (16:57)
[2024-02-28 20:26] LABS: Hematocrit 27.6 % (37.0-47.0); Hemoglobin 9.1 g/dL (12.0-16.0)
[2024-02-28] MEDS: REFRESH CELLUVISC GEL 1 DROPS BOTH EYES (21:51)
[2024-02-29] VITALS (11 sets, daily range): BP systolic 18–143; BP diastolic 38–84; PULSE 54; BMI 30.5
[2024-02-29] MEDS: SYNTHROID 88 MCG PO (05:54)
[2024-02-29 07:50] LABS: Hematocrit 28.6 % (37.0-47.0); Hemoglobin 9.3 g/dL (12.0-16.0); Mean Corp Hgb Conc. 32.5 g/dL (33.0-37.0); Mean Corpuscular Hgb 29.5 pg (27.0-31.0); Mean Corpuscular Volume 90.8 fL (81.0-99.0); Mean Platelet Volume 8.6 fL (7.4-10.4); Platelet Count 349 10^3/uL (130-400); Red Blood Cell Count 3.15 10^6/uL (4.20-5.40); White Blood Cell Count 9.8 10^3/uL (4.8-10.8)
--- NOTE | 2024-02-29 07:51 | W.PN.ONC2 ---
Today's Communication / Plan
-
GI evaluation as noted. Will give some IV iron.
Impression
Impression
Pt is an 78 YO F with PMH significant for HOCM, HTN and DEEJAY presenting to with progressive weakness, SOB and low Hb.
Plan
Plan
- patiet s/p 1 unit blood. Hb now at 9.3, and stable
- GI eval appreciated. For enteroscopy and colonoscopy today.
- NOT severe iron deficiency but could benefit with some IV iron. Will give a few doses while inpatient
Subjective/Objective
Chief Complaint
ACS Heme F/U
Subjective
No complaints this morning.
Vital Signs:
Vital Signs
Temp Pulse Resp BP Pulse Ox
97.7 F 51 18 125/46 95
02/29/24 03:32 02/29/24 03:32 02/29/24 03:32 02/29/24 03:32 02/29/24 03:32
Lab Results:
Laboratory Data
WBC 9.8 10^3/uL (4.8-10.8) 02/29/24 07:03
Hgb 9.3 g/dL (12.0-16.0) L 02/29/24 07:03
Plt Count 349 10^3/uL (130-400) 02/29/24 07:03
PT 13.2 Sec (11.4-14.6) 02/27/24 15:06
INR 1.02 02/27/24 15:06
APTT 31.7 Sec (23.4-35.0) 02/27/24 15:06
eGFR 56.95 02/28/24 07:09
Laboratory Tests
02/28/24
07:09
Iron < 20 L
TIBC 306
Ferritin 53.1
Physical Exam
HEENT: No Jaundice
Cardiology: S1 and S2
Pulmonary: Clear
GI: Soft
[2024-02-29 08:52] LABS: Blood Urea Nitrogen 12 mg/dl (7-17); Calcium 9.8 mg/dl (8.4-10.2); Carbon Dioxide 23 mmol/L (22-30); Chloride 103 mmol/L (98-107); Estimated Creatinine Clearance 35 ml/min; Glucose 93 mg/dl (70-99); Potassium 4.5 mmol/L (3.5-5.1); Sodium 138 mmol/L (135-145); eGFR 56.95
[2024-02-29] MEDS: LOPRESSOR 75 MG PO ×2 (10:19→20:08)
[2024-02-29] MEDS: CRESTOR 20 MG PO (10:19)
[2024-02-29] MEDS: CARDIZEM CD 120 MG PO (10:23)
[2024-02-29] MEDS: ZESTRIL 20 MG PO (10:23)
[2024-02-29] MEDS: NSS (PRESERVATIVE FREE) IV (10:24)
[2024-02-29] MEDS: PROTONIX IV IV (10:25)
--- NOTE | 2024-02-29 12:29 | CM ---
Patient seen at bedside. IMM completed and plan is for discharge tomorrow with patient son providing transportation after school (he is a teacher). CM will continue to follow for discharge planning needs.
Plan; home with no needs anticipated.
--- NOTE | 2024-02-29 12:38 | W.PN.HOSP.TC ---
Today's Communication/Plan
-
follow HGB
hopeful d/c in AM
Assessment / Plan
Assessment / Plan
pt is an 78 year old female
Symptomatic Anemia--AVMs, internal hemorrhoids, polyps removed by colonoscopy--EGD WNL vs. Hematologic Malignancy in setting of Leukocytosis and Hilar/Mediastinal Lymphadenopathy --apprec heme/GI---cont PPI--follow HGB in AM
Chronic HFpEF/Hypertrophic Obstructive Cardiomyopathy--Monitor Is&Os and Daily Weights-- no exacerbation
Essential Hypertension-Continue Cardizem, Metoprolol and Lisinopril
Hyperlipidemia-Continue rosuvastatin
Hypothyroidism-Continue Levothyroxine
Obstructive Sleep Apnea-Continue CPAP
DVT proph: SCDs
Code Status: DNR
hopeful d/c tomorrow
Anticipated Discharge: Within 24 hours
Subjective/Interval History
-
Date of Service: February 29, 2024
pt feeling very well
Objective Data
-
Labs:
Laboratory Results
02/29/24
07:03
WBC 9.8
Hgb 9.3 L
Hct 28.6 L
Plt Count 349
Sodium 138
Potassium 4.5
Chloride 103
Carbon Dioxide 23
BUN 12
Creatinine 1.0
Glucose 93
Calcium 9.8
Vital Signs:
max temp for 24 hours
02/29/24
09:55
Temp 98.1 F
Vital Signs
Temp Pulse Resp BP Pulse Ox
97.6 F 55 16 143/52 90
02/29/24 11:20 02/29/24 11:20 02/29/24 11:20 02/29/24 11:20 02/29/24 11:20
I&O
02/28/24 02/29/24 03/01/24
06:59 06:59 06:59
Intake Total 730 / 730 1200 / 1200
Balance 730 / 730 1200 / 1200
Review of Systems
-
All other systems: Reviewed and negative
Physical Exam
-
General: Well Developed, Well Nourished and No Apparent Distress
HEENT: Normocephalic and Atraumatic
Respiratory: Clear to Auscultation; Negative Wheezes or Rhonchi
Cardiac: Regular Rhythm and S1/S2; Negative Murmur
GI: Soft, Nontender, Nondistended and Normal Bowel Sounds
Musculoskeletal: No Clubbing, No Cyanosis and No Edema
Neuro: Awake and Alert
Psych: Calm
[2024-02-29] MEDS: FERRLECIT 110 MG IV (15:58)
[2024-02-29] MEDS: SINGULAIR 10 MG PO (17:07)
[2024-02-29] MEDS: VITAMIN B-12 1000 MCG PO (17:07)
[2024-02-29] MEDS: REFRESH CELLUVISC GEL 1 DROPS BOTH EYES (20:09)
[2024-03-01 03:00] VITALS: BP 136/50
[2024-03-01 05:32] LABS: Hematocrit 27.3 % (37.0-47.0); Hemoglobin 8.9 g/dL (12.0-16.0); Mean Corp Hgb Conc. 32.6 g/dL (33.0-37.0); Mean Corpuscular Hgb 29.8 pg (27.0-31.0); Mean Corpuscular Volume 91.3 fL (81.0-99.0); Mean Platelet Volume 8.5 fL (7.4-10.4); Platelet Count 312 10^3/uL (130-400); Red Blood Cell Count 2.99 10^6/uL (4.20-5.40); Red Cell Dist. Width 16.5 % (11.5-14.5); White Blood Cell Count 11.4 10^3/uL (4.8-10.8)
[2024-03-01 06:00] VITALS: BMI 30.4
[2024-03-01] MEDS: SYNTHROID 88 MCG PO (06:07)
[2024-03-01 07:20] VITALS: BP 142/57
[2024-03-01] MEDS: CARDIZEM CD PO (08:36)
[2024-03-01] MEDS: ZESTRIL 20 MG PO (08:36)
[2024-03-01] MEDS: PROTONIX IV 40 MG IV (08:37)
[2024-03-01] MEDS: CRESTOR 20 MG PO (08:37)
[2024-03-01] MEDS: LOPRESSOR PO (08:37)
[2024-03-01] MEDS: NSS (PRESERVATIVE FREE) 10 ML IV (08:38)
--- NOTE | 2024-03-01 09:15 | W.PN.ONC2 ---
Today's Communication / Plan
-
patient s/p 1 unit blood. Hb now at 8.9 from 9.3.
GI eval appreciated. enteroscopy and colonoscopy yesterday.
given IV iron on 02/28
FU with hematology OP
Impression
Impression
Pt is an 78 YO F with PMH significant for HOCM, HTN and DEEJAY presenting to with progressive weakness, SOB and low Hb.
Subjective/Objective
Chief Complaint
Hematology follow-up
Subjective
Patient states that overnight she had no acute events. She reports feeling significantly better from when she arrived to the hospital. She reports no ongoing headaches, shortness of breath, chest pain, nausea, vomiting, abdominal pain. Patient
had small bowel endoscopy and colonoscopy on 02/28. Small bowel endoscopy normal and colonoscopy showed nonbleeding internal hemorrhoids and 4 mm polyp near ileocecal valve. Patient was given IV iron yesterday. Hemoglobin today is 8.9, down from
9.3 yesterday.
Vital Signs:
Vital Signs
Temp Pulse Resp BP Pulse Ox
97.7 F 51 16 142/57 94
03/01/24 07:20 03/01/24 07:20 03/01/24 07:20 03/01/24 07:20 03/01/24 07:20
Lab Results:
Laboratory Data
WBC 11.4 10^3/uL (4.8-10.8) H 03/01/24 04:29
Hgb 8.9 g/dL (12.0-16.0) L 03/01/24 04:29
Plt Count 312 10^3/uL (130-400) 03/01/24 04:29
PT 13.2 Sec (11.4-14.6) 02/27/24 15:06
INR 1.02 02/27/24 15:06
APTT 31.7 Sec (23.4-35.0) 02/27/24 15:06
eGFR 56.95 02/29/24 07:03
Physical Exam
General�alert and oriented x 3, resting comfortably, conversant
HEENT: Other (None)
Cardiology: Normal Sinus Rhythm
Pulmonary: Clear
GI: Soft
Review of Systems
Review of Systems
All systems reviewed and normal per patient.
--- NOTE | 2024-03-01 11:11 | W.DS.TRANS ---
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
-
Discharge Instructions:
Discharge Diagnosis/Procedures Symptomatic severe anemia; nonbleeding colonic
AVMs; colonic polyps; status post 1 unit of PRBC
transfusion; fluctuating leukocytosis with
hilar mediastinal lymphadenopathy
Diet 2 Gram Sodium
Activity As tolerated
Driving Restrictions As prior to admission
Blood Work CBC in 1 week-arrange through PCP
Instructions:
Stand-Alone Forms:
Changes to Home Medications: No
Discharge Medications:
DC Medications w/original date entered in [employer]
aspirin 81 mg tablet,delayed release 81 mg PO QPM Blood Clot Prevention/Tx 06/23/15
levocetirizine 5 mg tablet 5 mg PO QPM Allergies 06/23/15
cyanocobalamin (vitamin B-12) 1,000 mcg tablet (Vitamin B-12) 1,000 mcg PO QPM Supplement 08/08/23
rosuvastatin 20 mg tablet 20 mg PO DAILY High Cholesterol 08/08/23
diltiazem HCl 120 mg capsule,extended release 24 hr 120 mg PO DAILY #30 caps 08/11/23
lisinopril 20 mg tablet 20 mg PO DAILY #30 tabs 08/11/23
acetaminophen 500 mg tablet (Tylenol Extra Strength) 1,000 mg PO Q6HPRN PRN mild pain 02/27/24
calcium carbonate 600 mg-vitamin D3 10 mcg (400 unit) tablet (Calcium 600 + D(3)) 2 tab PO DAILY Supplement 02/27/24
carboxymethylcellulose sodium 1 % eye liquid gel drops (Refresh Liquigel) 1 drp BOTH EYES HS Eye Condition 02/27/24
ferrous sulfate 134 mg (27 mg iron) tablet 134 mg PO DAILY Supplement 02/27/24
levothyroxine 88 mcg tablet 88 mcg PO DAILY Thyroid 02/27/24
metoprolol tartrate 50 mg tablet 75 mg PO BID Blood Pressure 02/27/24
montelukast 10 mg tablet 10 mg PO QPM Allergies 02/27/24
peg 400-propylene glycol 0.4 %-0.3 % eye drops (Systane Ultra) 1 drp BOTH EYES DAILY Eye Condition 02/27/24
therapeutic multivitamin 1 tab PO QPM Supplement 02/27/24
fluticasone propionate 50 mcg/actuation nasal spray,suspension (Flonase Allergy Relief) 1 spray intranasal DAILY Congestion 02/28/24
Home Medication Changes
Pending Results: No
[2024-03-01 11:41] VITALS: BP 160/57
--- NOTE | 2024-03-01 11:58 | W.PN.HOSP.TC ---
Today's Communication/Plan
-
DC
Assessment / Plan
Assessment / Plan
pt is an 78 year old female
Symptomatic Anemia--AVMs, internal hemorrhoids, polyps removed by colonoscopy--EGD WNL -- --follow HGB today 8.9 and stable. CW iron orally at home for iron deficiency. Stable for DC.
Fluctuating leukocytosis and Hilar/Mediastinal Lymphadenopathy -Onc in put noted -follow as OP .
Chronic HFpEF/Hypertrophic Obstructive Cardiomyopathy-- - no exacerbation
Essential Hypertension-Continue Cardizem, Metoprolol and Lisinopril
Hyperlipidemia-Continue rosuvastatin
Hypothyroidism-Continue Levothyroxine
Obstructive Sleep Apnea-Continue CPAP
DVT proph: SCDs
Code Status: DNR
Medically stable for discharge.
Discussed with son at bedside and the [id number] CBC in a week and follow-up with GI and oncology as planned.
Anticipated Discharge: Today
Subjective/Interval History
-
Date of Service: March 01, 2024
No GI bleeding today
No GI symptoms of abdominal pain, nausea vomiting. Tolerating diet.
Denies chest pain or shortness of breath.
Denies any lightheadedness or dizziness.
Objective Data
-
Labs:
Laboratory Results
03/01/24
04:29
WBC 11.4 H
Hgb 8.9 L
Hct 27.3 L
Plt Count 312
Vital Signs:
Vital Signs
Temp Pulse Resp BP Pulse Ox
97.9 F 52 14 160/57 92
03/01/24 11:41 03/01/24 11:41 03/01/24 11:41 03/01/24 11:41 03/01/24 11:41
I&O
02/29/24 03/01/24 03/02/24
06:59 06:59 06:59
Intake Total 1200 / 1200 660 / 660
Balance 1200 / 1200 660 / 660
Review of Systems
-
Constitutional: Denies Fever
Respiratory: Denies Cough or Trouble Breathing
Cardiac: Denies Chest Pain
Physical Exam
-
General: No Apparent Distress
HEENT: Moist Mucous Membranes
Respiratory: Clear to Auscultation
Cardiac: Regular Rhythm and S1/S2
GI: Soft and Nontender
Musculoskeletal: No Edema
Neuro: AO x 3
Data Reviewed
-
Labs: Labs Reviewed by me
--- NOTE | 2024-03-01 12:13 | CM ---
Patient seen at bedside with patient son. No concerns for discharge at this time. CM will continue to follow for discharge planning needs.
Plan; home with no needs anticipated.
== END 2024-03-01 12:43 | disposition home or self-care (01) | DRG 348 ==
LOC: 4 WEST ACU 21:35
PROVIDERS: Emergency Medicine; Internal Medicine; Nurse Practitioner Adult Health; Physician Assistant Medical; ADMITTING PHYSICIAN Hospitalist; ATTENDING PHYSICIAN Internal Medicine; CONSULT PHYSICIAN Internal Medicine Gastroenterology; EMERGENCY PHYSICIAN Emergency Medicine; FAMILY PHYSICIAN Family Medicine; OTHER PHYSICIAN Internal Medicine Hematology & Oncology
PROC: 30233N1 Transfusion of Nonautologous Red Blood Cells into Peripheral Vein, Percutaneous Approach (ICD-10-PCS; 2024-02-27)
PROC: 5A09357 Assistance with Respiratory Ventilation, Less than 24 Consecutive Hours, Continuous Positive Airway Pressure (ICD-10-PCS; 2024-02-28)
PROC: 0DJ08ZZ Inspection of Upper Intestinal Tract, Via Natural or Artificial Opening Endoscopic (ICD-10-PCS; 2024-02-29)
PROC: 0DBC8ZZ Excision of Ileocecal Valve, Via Natural or Artificial Opening Endoscopic (ICD-10-PCS; 2024-02-29)
PROC: 0W3P8ZZ Control Bleeding in Gastrointestinal Tract, Via Natural or Artificial Opening Endoscopic (ICD-10-PCS; 2024-02-29)
DX: K55.21 Angiodysplasia of colon with hemorrhage (principal); I13.0 Hypertensive heart and chronic kidney disease with heart failure and stage 1 through stage 4 chronic kidney disease, or unspecified chronic kidney disease; I50.32 Chronic diastolic (congestive) heart failure; I42.1 Obstructive hypertrophic cardiomyopathy; N18.9 Chronic kidney disease, unspecified; D50.0 Iron deficiency anemia secondary to blood loss (chronic); E03.9 Hypothyroidism, unspecified; Z66 Do not resuscitate; R63.4 Abnormal weight loss; Z68.31 Body mass index [BMI] 31.0-31.9, adult; D12.0 Benign neoplasm of cecum; K57.30 Diverticulosis of large intestine without perforation or abscess without bleeding; K59.00 Constipation, unspecified; K64.8 Other hemorrhoids; G47.33 Obstructive sleep apnea (adult) (pediatric); D72.829 Elevated white blood cell count, unspecified; E78.00 Pure hypercholesterolemia, unspecified; R09.02 Hypoxemia; R06.02 Shortness of breath; R06.09 Other forms of dyspnea; R59.0 Localized enlarged lymph nodes; Z79.82 Long term (current) use of aspirin; Z79.890 Hormone replacement therapy; Z79.899 Other long term (current) drug therapy; Z87.11 Personal history of peptic ulcer disease; Z86.010 Personal history of colon polyps; Z87.891 Personal history of nicotine dependence; Z88.8 Allergy status to other drugs, medicaments and biological substances
CPT/HCPCS: 88305; 71046; 80048; 80053; 82728; 83540; 83550; 83880; 85014; 85018; 85025; 85027; 85610; 85730; 86850; 86870; 86900; 86901; 86902; 86905; 86920; 86922; 93005; 94660; 99285; J2916; P9016

== ENCOUNTER → 2024-04-06 10:44 | Outpatient (REF) | payer OTHER, SELFPAY | LOC: WDC 10:44 | PROVIDERS: ATTENDING PHYSICIAN Family Medicine | DX: Z12.31 Encounter for screening mammogram for malignant neoplasm of breast (principal) | CPT/HCPCS: 77063; 77067 ==

== ENCOUNTER 2024-04-17 18:22 | Inpatient (IN) | payer OTHER, SELFPAY ==
[2024-04-17 15:36] VITALS: BP 149/118
--- NOTE | 2024-04-17 15:42 | ED.GENMED ---
ED Provider Triage
<Cici Coronado PA-C - Last Filed: 04/17/24 17:26>
-
Patient seen by provider in Triage?: Seen in Triage
Attestation: A medical screening examination has been initiated by a qualified medical provider. Based on the assessment performed at this time, it has been determined that an emergent medical condition may exist and the patient has been informed
that further medical evaluation and possible additional diagnostic testing may be needed.
HPI: 78yoF here with BRBPR x 4 episodes today. Also having diarrhea. Recently admitted for a GI bleed. Had a colonoscopy on 02/29/24 which showed 'On colonoscopy, there were nonbleeding internal hemorrhoids, diverticulosis and there was a single
nonbleeding colonic angiodysplastic lesion in the cecum.' No blood thinners.
GENERAL: Alert , in no apparent distress
EYE: No visual abnormalities.
NECK: Trachea midline
ENT: No visible abnormalities.
LUNGS: No acute respiratory distress
NEUROLOGICAL: Alert and oriented
SKIN: Skin intact. No visible changes.
MUSCULOSKELETAL: Moving extremities normally
PSYCH: Normal and appropriate interaction.
This is a medical evaluation conducted in person to initiate diagnostic evaluation and provide initial therapeutics. Please see further documentation by the treating clinician.
CBC, CMP, coags, and type and screen ordered.
History of Present Illness
<Cici Coronado PA-C - Last Filed: 04/17/24 17:26>
General
Chief Complaint: Rectal Bleeding
Time Seen by Provider: 04/17/24 16:49
<Ricky Vazquez MD - Last Filed: 04/17/24 17:55>
General
Source: patient
Exam Limitations: none
Nursing documentation reviewed up to this point in time: agreed with
History of Present Illness
History of Present Illness:
78-year-old female with a past medical history of hypertension, hyperlipidemia, prior GI bleeding (follows with Dr. Pearson) who presents to the emergency room for evaluation of bright blood per rectum. Patient reports 4 total episodes of bright red
blood per rectum since around 10 AM this morning. She says the first 3 episodes were relatively small volume but then the last episode before coming to the emergency room was larger volume of bright red blood. She says she has been feeling a bit
weak today but denies any chest pain, shortness of breath, dizziness. She denies any abdominal pain or vomiting. She is not on any blood thinners. She does note prior history of GI bleeding, had admission in February for GI bleeding and had upper
and lower endoscopy at that time thought potentially to be related to colonic AVM.
Past History
<Cici Coronado PA-C - Last Filed: 04/17/24 17:26>
Past History
ED Past Medical History: HTN, Hypercholesterolemia and Hypothyroidism
ED Past Surgical History: Appendectomy and Gynecological
Social History
Tobacco: Non-smoker
Alcohol: None
Drug: None
Personal:
Living: with family
Employment: Retired
Family History
Family History: Other (Noncontributory)
Review of Systems
<Ricky Vazquez MD - Last Filed: 04/17/24 17:55>
Review of Systems
All Other Systems: ROS reviewed and negative except as documented in HPI and ROS
Constitutional: Reports fatigue
Respiratory: Denies trouble breathing
Cardiac: Denies chest pain
ABD/GI: Reports diarrhea and bloody stools; Denies abdominal pain, nausea or vomiting
: Denies flank pain
Musculoskeletal: Denies neck pain or back pain
Neurological: Denies dizzy or headache
Phy Exam
<Ricky Vazquez MD - Last Filed: 04/17/24 17:55>
Physical Exam
Physical Exam:
General: Awake, alert, oriented x3; no acute distress
Head: Normocephalic, atraumatic
Eyes: Conjunctiva normal
Throat: Airway intact, handling secretions
Neck: Trachea midline
Lungs: Clear to auscultation bilaterally, no wheezing, rales, rhonchi
Heart: Regular rate and rhythm, systolic murmur
Abd: Soft, non distended, nontender with no palpable mass
Rectal: Small external hemorrhoids no active bleeding or excoriation noted, no palpable internal masses, dark red stool in the rectal vault heme positive
Neuro: No gross deficits
Extremities: Warm and well-perfused
Scores
<Ricky Vazquez MD - Last Filed: 04/17/24 17:55>
Heart Failure Risk
Heart Failure Risk Score: Not Applicable
Heart Score for Chest Pain Patients
STEMI patient?: Not applicable
Withdrawal Assessment of Alcohol
Withdrawal Assessment Completed?: Not applicable
Course
<Cici Coronado PA-C - Last Filed: 04/17/24 17:26>
Orders/Labs/Results
Orders:
Orders
04/17/24 15:47
Type+Screen Urgent
Complete Blood Count/With Diff Urgent
Comprehensive Metabolic Panel Urgent
04/17/24 16:20
Protime/PTT Urgent
04/17/24 17:37
Admit/Transfer Patient As Directed
Co-Sign Provider:
Level of Care: Inpatient admission
Assign to:: Telemetry
Physician / Group: agusto
Diagnosis: Gi bleed
Reason for Telemetry: Other
Other Reason for Telemetry: GI bleed
Date to Stop Telemetry: 04/19/24
Time to Stop Telemetry: 11:00
Reason for Hospitalization: GI bleed
Expected length of stay greater than two midnights?: Yes
ELOS- Estimated Length of Stay in days: 3
I certify the patient meets the requirements for IP care: Yes
PRN Pain Medication Management As Directed
May give lesser potent ordered pain med per pt: Yes
preference::
Protocol:: Medication orders for pain may be administered in a
manner that supports deferring to patient preference
when the pt is:
- Requesting an ordered lesser potent pain medication.
Least to most potent pain medications are defined
as: acetaminophen < NSAID < tramadol < opioids
(morphine, oxycodone, hydromorphone).
- Requesting a lesser dose of the same medication IF
ORDERED.
- Requesting a less intrusive route of administration
if both routes are prescribed by the provider (PO <
IV).
04/17/24 17:39
Code Status As Directed
Resuscitation Status: Full Code
04/19/24 11:00
DC Protocol for Telemetry ONCE
Abnormal Lab Results
04/17/24
15:47
WBC 20.2 H 10^3/uL
(4.8-10.8)
RBC 2.94 L 10^6/uL
(4.20-5.40)
Hgb 8.4 L g/dL
(12.0-16.0)
Hct 25.3 L %
(37.0-47.0)
RDW 15.3 H %
(11.5-14.5)
Abs Immat Gran (auto) 0.2 H 10^3/uL
(0-0.05)
Absolute Neuts (auto) 16.4 H 10^3/uL
(1.4-6.5)
Absolute Monos (auto) 1.0 H 10^3/uL
(0.1-0.6)
Immature Gran % 0.8 H %
(0-0.5)
Neutrophils % 81.4 H %
(42.2-75.2)
Lymphocytes % 9.8 L %
(20.5-51.1)
Carbon Dioxide 21 L mmol/L
(22-30)
BUN 29 H mg/dl
(7-17)
Creatinine 1.1 H mg/dL
(0.6-1.0)
Glucose 138 H mg/dl
(70-99)
04/17/24 15:47
04/17/24 15:47
Vital Signs
Initial and Last Documented VS:
Initial Vital Signs
Temp Pulse Resp BP Pulse Ox
36.8 C 87 18 149/118 96
04/17/24 15:36 04/17/24 15:36 04/17/24 15:36 04/17/24 15:36 04/17/24 15:36
Last Documented Vital Signs
Temp Pulse Resp BP Pulse Ox
36.8 C 76 22 149/118 96
04/17/24 15:36 04/17/24 17:00 04/17/24 17:00 04/17/24 15:36 04/17/24 15:36
<Ricky Vazquez MD - Last Filed: 04/17/24 17:55>
Orders/Labs/Results
Orders:
Orders
04/17/24 15:47
Type+Screen Urgent
Complete Blood Count/With Diff Urgent
Comprehensive Metabolic Panel Urgent
04/17/24 16:20
Protime/PTT Urgent
04/17/24 17:37
Admit/Transfer Patient As Directed
Co-Sign Provider:
Level of Care: Inpatient admission
Assign to:: Telemetry
Physician / Group: agusto
Diagnosis: Gi bleed
Reason for Telemetry: Other
Other Reason for Telemetry: GI bleed
Date to Stop Telemetry: 04/19/24
Time to Stop Telemetry: 11:00
Reason for Hospitalization: GI bleed
Expected length of stay greater than two midnights?: Yes
ELOS- Estimated Length of Stay in days: 3
I certify the patient meets the requirements for IP care: Yes
PRN Pain Medication Management As Directed
May give lesser potent ordered pain med per pt: Yes
preference::
Protocol:: Medication orders for pain may be administered in a
manner that supports deferring to patient preference
when the pt is:
- Requesting an ordered lesser potent pain medication.
Least to most potent pain medications are defined
as: acetaminophen < NSAID < tramadol < opioids
(morphine, oxycodone, hydromorphone).
- Requesting a lesser dose of the same medication IF
ORDERED.
- Requesting a less intrusive route of administration
if both routes are prescribed by the provider (PO <
IV).
04/17/24 17:39
Code Status As Directed
Resuscitation Status: Full Code
04/19/24 11:00
DC Protocol for Telemetry ONCE
Abnormal Lab Results
04/17/24
15:47
WBC 20.2 H 10^3/uL
(4.8-10.8)
RBC 2.94 L 10^6/uL
(4.20-5.40)
Hgb 8.4 L g/dL
(12.0-16.0)
Hct 25.3 L %
(37.0-47.0)
RDW 15.3 H %
(11.5-14.5)
Abs Immat Gran (auto) 0.2 H 10^3/uL
(0-0.05)
Absolute Neuts (auto) 16.4 H 10^3/uL
(1.4-6.5)
Absolute Monos (auto) 1.0 H 10^3/uL
(0.1-0.6)
Immature Gran % 0.8 H %
(0-0.5)
Neutrophils % 81.4 H %
(42.2-75.2)
Lymphocytes % 9.8 L %
(20.5-51.1)
Carbon Dioxide 21 L mmol/L
(22-30)
BUN 29 H mg/dl
(7-17)
Creatinine 1.1 H mg/dL
(0.6-1.0)
Glucose 138 H mg/dl
(70-99)
04/17/24 15:47
04/17/24 15:47
Vital Signs
Initial and Last Documented VS:
Initial Vital Signs
Temp Pulse Resp BP Pulse Ox
36.8 C 87 18 149/118 96
04/17/24 15:36 04/17/24 15:36 04/17/24 15:36 04/17/24 15:36 04/17/24 15:36
Last Documented Vital Signs
Temp Pulse Resp BP Pulse Ox
36.8 C 76 22 149/118 96
04/17/24 15:36 04/17/24 17:00 04/17/24 17:00 04/17/24 15:36 04/17/24 15:36
<Ricky Vazquez MD - Last Filed: 04/17/24 17:55>
MDM/Problems Addressed
Differential Diagnosis Includes:
Lower GI bleeding: Hemorrhoidal bleed, AVM, bleeding polyp/mass
MDM/Problems Addressed:
78-year-old female presents for evaluation of bright red blood per rectum. 4 episodes total including large-volume episode prior to arrival here. She is not on blood thinners. Has history of GI bleeding from AVM. Hypertensive, heart rate in the
80s. Physical exam as above. She does have external hemorrhoids but they did not have any signs of bleeding and she did have dark red stool in the rectal vault on exam. She had an IV placed in triage and labs were sent off�CBC shows hemoglobin of
8.4 which is essentially stable�only marginally lower than prior however she also has leukocytosis and uptrending platelet count which could potentially suggest hemoconcentration in the setting of acute GI bleeding. Her CMP shows creatinine of 1.1
which is slightly increased from prior baseline of 1 and an elevated BUN which could suggest some GI bleeding. Type and screen sent off. Will hold on blood transfusion with stable hemoglobin thus far and stable hemodynamics but I did consent
patient for blood transfusion in case of need. Will admit for trending of hemoglobin and monitor for additional bleeding. Case discussed with hospitalist for admission.
Acute Exacerbation and/or Progression of Chronic Illness:
Acutely hypertensive with no signs or symptoms of hypertensive emergency�no indication for emergent antihypertensive treatment in the emergency room
Acute Exacerbation and/or Progression of Chronic Illness: HTN
<Ricky Vazquez MD - Last Filed: 04/17/24 17:55>
*Pulse Oximetry
Patient hypoxic: no
*Critical Care Note
Total Time (30-74mins, 75-104mins- exclusive of procedures): Not Applicable
Data Reviewed
Review of Other/Old Records Reveals: Labs, Records, Testing and Discharge Summary
Source: patient, records and spouse
<Ricky Vazquez MD - Last Filed: 04/17/24 17:55>
Patient Management
Discussion with other providers: Hospitalist (Case discussed with hospitalist)
Escalation/DeEscalation of care consider admission/obs:
Admission indicated
ED Attending Note
<Cici Coronado PA-C - Last Filed: 04/17/24 17:26>
-
Portions of this chart may have been created with voice recognition software.� Occasional wrong word or��sound alike� substitutions may have occurred due to the inherent limitations of voice recognition software.
Discharge Plan
Departure
Patient Disposition: Admit
Date of Disposition: 04/17/24
Time of Disposition: 17:08
Admit to doctor: Heidy
Presentation/result/management discussed w/ accepting MD/DO: Hospitalist
Discharge Problem:
Acute lower GI bleeding, Chronic anemia
Prescriptions:
No Action
aspirin 81 MG tablet,delayed release (DR/EC)
81 mg PO QPM
levocetirizine 5 MG tablet
5 mg PO QPM
cyanocobalamin (vitamin B-12) [Vitamin B-12] 1,000 mcg Tablet
1,000 mcg PO QPM
rosuvastatin 20 mg Tablet
20 mg PO DAILY
lisinopril 20 mg Tablet
20 mg PO DAILY Qty: 30 0RF
diltiazem HCl 120 mg Capsule,Extended Release 24hr
120 mg PO DAILY Qty: 30 0RF
therapeutic multivitamin Tablet
1 tab PO QPM
acetaminophen [Tylenol Extra Strength] 500 mg Tablet
1,000 mg PO Q6HPRN PRN (Reason: mild pain)
levothyroxine 88 mcg Tablet
88 mcg PO DAILY
montelukast 10 mg Tablet
10 mg PO QPM
carboxymethylcellulose sodium [Refresh Liquigel] 1 % Drops, Liquid Gel
1 drp BOTH EYES HS
ferrous sulfate 134 mg (27 mg iron) Tablet
134 mg PO DAILY
Systane Ultra 0.4-0.3 % Drops
1 drp BOTH EYES DAILY
calcium carbonate-vitamin D3 [Calcium 600 + D(3)] 600 mg-10 mcg (400 unit) Tablet
2 tab PO DAILY
metoprolol tartrate 50 mg tablet
75 mg PO BID
fluticasone propionate [Flonase Allergy Relief] 50 mcg/actuation spray,suspension
1 spray intranasal DAILY
omeprazole 20 mg Capsule,Delayed Release(Dr/Ec)
20 mg PO DAILY
Patient Comments:
04/17/24: Patient thinks this medication is causing her diarrhea, as it is a new medication.
Referrals:
[facility], [Other]
Liliana Lassiter MD [Family Provider] -
Interventions
Interventions:
*Risk Screen - Suicide Last Done: 04/17/24 15:36
*General Assessment Last Done: 04/17/24 15:36
*Neglect/Abuse Screening Last Done: 04/17/24 15:36
*ED COVID-19 Vaccine History Last Done: 04/17/24 15:36
PE-Gfnlfp-Rlkmomubyy Assessment Last Done: 04/17/24 16:24
ED- Cardiac Assessment Last Done: 04/17/24 16:24
ED- Pulmonary Assessment Last Done: 04/17/24 16:24
Discharge Date and Time
Print Language: EAST [place]
[2024-04-17 15:57] LABS: % Basophils 0.3 % (0-2); % Eosinophils 2.9 % (0-6); % Immature Granulocytes 0.8 % (0-0.5); % Lymphocytes 9.8 % (20.5-51.1); % Monocytes 4.8 % (1.7-9.3); % Neutrophils 81.4 % (42.2-75.2); Absolute Basophils 0.1 10^3/uL (0-0.2); Absolute Eosinophils 0.6 10^3/uL (0-0.7); Absolute Immature Granulocytes 0.2 10^3/uL (0-0.05); Absolute Neutrophils 16.4 10^3/uL (1.4-6.5); Hematocrit 25.3 % (37.0-47.0); Hemoglobin 8.4 g/dL (12.0-16.0); Mean Corp Hgb Conc. 33.2 g/dL (33.0-37.0); Mean Corpuscular Hgb 28.6 pg (27.0-31.0); Mean Corpuscular Volume 86.1 fL (81.0-99.0); Mean Platelet Volume 8.9 fL (7.4-10.4); Nucleated Red Blood Cells % 0 %; Platelet Count 391 10^3/uL (130-400); Red Blood Cell Count 2.94 10^6/uL (4.20-5.40); Red Cell Dist. Width 15.3 % (11.5-14.5); White Blood Cell Count 20.2 10^3/uL (4.8-10.8)
[2024-04-17 16:09] LABS: ALT (SGPT) 14 U/L (0-35); AST (SGOT) 22 U/L (14-36); Alkaline Phosphatase 62 U/L (38-126); Blood Urea Nitrogen 29 mg/dl (7-17); Calcium 9.8 mg/dl (8.4-10.2); Carbon Dioxide 21 mmol/L (22-30); Chloride 105 mmol/L (98-107); Glucose 138 mg/dl (70-99); Potassium 3.9 mmol/L (3.5-5.1); Sodium 139 mmol/L (135-145); Total Bilirubin 0.3 mg/dl (0.2-1.3); Total Protein 7.1 g/dl (6.3-8.2)
[2024-04-17 16:31] VITALS: BMI 28.2
[2024-04-17 16:41] LABS: INR 1.07; PT 13.7 Sec (11.4-14.6)
[2024-04-17 16:42] LABS: APTT 32.5 Sec (23.4-35.0)
--- NOTE | 2024-04-17 17:09 | HPS.HSE ---
Addendum entered and electronically signed by Joe Edgar MD 04/17/24 18:33:
Pt was doing well since prior admission of 02/26-03/01 until day when had extensive BRBPR, felt weak following acute episode
No chest pain or sob
Pt seen independently and agree with TAX PREPARER note
Lungs clear
CV reg, 3/6 wem
Abd soft, +BS
Ext no edema
Imp; recurrent LGI bleed in pt with known diverticulosis and AVM's
HOCM
P:clear liquids
T&S, Blood consented
GI consult
Full code confirmed with son (out of room)
Original Note:
Family Physician
-
Family Physician: Liliana Lassiter MD
Chief Complaint
-
bloody BM
History of Present Illness
78yoF with PMH for GI bleed, aortic stenosis, CHF, HLD, DEEJAY, anemia, hypothyroidism, anemia htn, angiodysplasia of colon presented to us with bloody watery diarrhea x5 today. patient stated very weak. Recently admitted for a GI bleed. Had a
colonoscopy on 02/29/24 which showed 'On colonoscopy, there were nonbleeding internal hemorrhoids, diverticulosis and there was a single nonbleeding colonic angiodysplastic lesion in the cecum. patient was recently started on PPI 5 days ago. patient
denied ZELAYA, dizzy or syncopal episode. denied fever, chills, chest pain. stated some sob. denied abdominal pain,n,v. denied dysuria or hematuria.
she follows up with hematology for anemia. she is scheduled for transfusion next Tuesday. admitting for further management.
Medical History
Past Medical History
Past Medical History: Reports Other
Additional Past Medical History:
Aortic stenosis
Congestive heart failure
Hyperlipidemia
Obstructive sleep apnea
-Anemia
Hypothyroidism
Hypertension
Hemorrhoids
Past Surgical History: Reports Other
Additional Past Surgical History:
appendectomy
tubal ligation
tonsillectomy
Social History
Tobacco: Non-smoker
Alcohol: None
Drug: None
Personal: Single
Living: Alone
Family History
Family History: Not pertinent
Allergies / Home Medications
Allergies reflects when Allergies were last updated in [facility].
Home Medications with original date entered in [facility]
Allergy/Medication List:
Allergies
Allergy/AdvReac Type Severity Reaction Status Date / Time
prednisone Allergy hypertensio Verified 04/17/24 15:40
n
Home Medications
aspirin 81 mg tablet,delayed release 81 mg PO QPM Blood Clot Prevention/Tx 06/23/15
levocetirizine 5 mg tablet 5 mg PO QPM Allergies 06/23/15
cyanocobalamin (vitamin B-12) 1,000 mcg tablet (Vitamin B-12) 1,000 mcg PO QPM Supplement 08/08/23
rosuvastatin 20 mg tablet 20 mg PO DAILY High Cholesterol 08/08/23
diltiazem HCl 120 mg capsule,extended release 24 hr 120 mg PO DAILY #30 caps 08/11/23
lisinopril 20 mg tablet 20 mg PO DAILY #30 tabs 08/11/23
acetaminophen 500 mg tablet (Tylenol Extra Strength) 1,000 mg PO Q6HPRN PRN mild pain 02/27/24
calcium 600 mg (as carbonate)-vitamin D3 10 mcg (400 unit) tablet (Calcium 600 + D(3)) 2 tab PO DAILY Supplement 02/27/24
carboxymethylcellulose sodium 1 % eye liquid gel drops (Refresh Liquigel) 1 drp BOTH EYES HS Eye Condition 02/27/24
ferrous sulfate 134 mg (27 mg iron) tablet 134 mg PO DAILY Supplement 02/27/24
levothyroxine 88 mcg tablet 88 mcg PO DAILY Thyroid 02/27/24
metoprolol tartrate 50 mg tablet 75 mg PO BID Blood Pressure 02/27/24
montelukast 10 mg tablet 10 mg PO QPM Allergies 02/27/24
peg 400-propylene glycol 0.4 %-0.3 % eye drops (Systane Ultra) 1 drp BOTH EYES DAILY Eye Condition 02/27/24
therapeutic multivitamin 1 tab PO QPM Supplement 02/27/24
fluticasone propionate 50 mcg/actuation nasal spray,suspension (Flonase Allergy Relief) 1 spray intranasal DAILY Congestion 02/28/24
omeprazole 20 mg capsule,delayed release 20 mg PO DAILY 04/17/24
Review of Systems
-
Constitutional: Reports No Symptoms
EENT: Reports No Symptoms
Respiratory: Reports No Symptoms
Cardiac: Reports No Symptoms
Abdomen/GI: Reports Diarrhea, Bloody Stools and Black Stools
: Reports No Symptoms
Musculoskeletal: Reports No Symptoms
Skin: Reports No Symptoms
Neurological: Reports No Symptoms
Endocrine: Reports No Symptoms
Hematologic/Lymphatic: Reports No Symptoms
Psych: Reports No Symptoms
Physical Exam
Vital Signs
Vital Signs
Temp Pulse Resp BP Pulse Ox
98.2 F 87 18 149/118 96
04/17/24 15:36 04/17/24 15:36 04/17/24 15:36 04/17/24 15:36 04/17/24 15:36
Physical Exam
General: Well Developed, Well Nourished and No Apparent Distress
HEENT: NormoCephalic, Moist mucous membranes and Atraumatic
Respiratory: Clear
Cardiac: S1/S2 and Regular Rhythm; No Murmur or Rub
GI: Soft, Non Tender, Non Distended and Normal Bowel Sounds; No Organomegaly
Rectal: Deferred by Provider
Musculoskeletal: No Clubbing, No Cyanosis and No Edema
Skin: No Rash
Neuro: AO x 3 and Nonfocal/grossly intact
Psych: Calm
Laboratory Results
-
04/17/24 15:47
04/17/24 15:47
Laboratory Results
PT 13.7 Sec (11.4-14.6) 04/17/24 16:20
INR 1.07 04/17/24 16:20
APTT 32.5 Sec (23.4-35.0) 04/17/24 16:20
Total Bilirubin 0.3 mg/dl (0.2-1.3) 04/17/24 15:47
AST 22 U/L (14-36) 04/17/24 15:47
ALT 14 U/L (0-35) 04/17/24 15:47
Alkaline Phosphatase 62 U/L (38-126) 04/17/24 15:47
Data Reviewed
-
Lab Data: Labs Reviewed by me
Impression/Plan
-
#Acute on chronic anemia likely from lower GI bleed
#recent Colonoscopy with Non-bleeding internal hemorrhoids. Diverticulosis in the sigmoid colon and in the descending colon.4 mm polyp at the ileocecal valve, removed with a [employer] cold forceps. Resected and retrieved.A single non-bleeding colonic
angiodysplastic lesion in cecum. Treated with argon plasma coagulation (APC
- recent EGD within normal likely from internal hemorrhoids
-Hemoglobin 8.4
-Consented for blood in ER
-Trend H&H
-Clear liquid diet for now
-IV PPI
-GI consult
#Leukocytosis chornic unclear cause
#mediastinal lymphadenopathy
-WBCs 20-patient is afebrile
-ctm
#Chronic HFpEF/Hypertrophic Obstructive Cardiomyopathy
- no exacerbation
#Essential Hypertension-Continue Cardizem, Metoprolol and Lisinopril with hold parameter
#Hyperlipidemia-Continue rosuvastatin
#Hypothyroidism-Continue Levothyroxine
#Obstructive Sleep Apnea-Continue CPAP
#DVT proph: SCDs
#Code Status: full code
[2024-04-17 17:32] VITALS: BP 138/50
[2024-04-17 18:00] VITALS: BP 142/62
[2024-04-17 20:06] VITALS: BP 110/63; BP 128/59; BP 137/56; PULSE 103; PULSE 88; PULSE 92; BMI 29.5
[2024-04-17] MEDS: PROTONIX IV 40 MG IV (20:28)
[2024-04-17] MEDS: ZYRTEC 5 MG PO (20:28)
[2024-04-17] MEDS: NSS (PRESERVATIVE FREE) 10 ML IV (20:28)
[2024-04-17] MEDS: ASPIR LOW (ENTERIC COATED) 81 MG PO (20:29)
[2024-04-17] MEDS: LOPRESSOR 75 MG PO (20:29)
[2024-04-17] MEDS: SINGULAIR 10 MG PO (20:29)
[2024-04-17] MEDS: THERAGRAN 1 TABLET PO (20:29)
[2024-04-17] MEDS: VITAMIN B-12 1000 MCG PO (20:29)
[2024-04-17 20:40] VITALS: BMI 29.5
[2024-04-17] MEDS: REFRESH EYE DROPS (PF) 1 DROPS BOTH EYES (20:52)
--- NOTE | 2024-04-17 21:00 | PTCARENOTE ---
patient received from ED via stretcher; Telemetry order- NSR on monitor, afebrile, HR 88, RR 18, BP 137/56, pox 93% room air. No c/o pain. Positive orthos but asymptomatic. Pt [place] w/ B/L hearing aides. PMH, medications, and plan of care reviewed by
this RN and patient. Call mccarthy within reach.
[2024-04-17 23:30] VITALS: BP 103/38; BP 107/39; BP 90/42; PULSE 58; PULSE 66; PULSE 72
[2024-04-18] VITALS (14 sets, daily range): BP systolic 97–166; BP diastolic 36–65; PULSE 51–76; BMI 29.4
[2024-04-18 00:47] LABS: Hematocrit 20.7 % (37.0-47.0)
--- NOTE | 2024-04-18 00:51 | PTCARENOTE ---
Critical hct 20.7. House SMEARER made aware. Orders for 0400 repeat H&H
--- NOTE | 2024-04-18 04:14 | DOWNTIME ---
There was a [employer] Client Forging Machine Hand Downtime on 04/18/2024 from 0100 to 04/18/2024 at 0355. Downtime documentation of patient's care, including medication administrations, has been reconciled in the electronic record per guidelines. Refer to the
patient's paper chart under the miscellaneous tab to see printed paper medication records and downtime forms.
--- NOTE | 2024-04-18 04:56 | PTCARENOTE ---
hgb 6.9/ hct 21.1 House COMMUNITY SERVICE DIRECTOR made aware. 1 unit PRBC ordered. Blood consent signed and placed in chart.
[2024-04-18 04:57] LABS: Hematocrit 21.1 % (37.0-47.0); Hemoglobin 6.9 g/dL (12.0-16.0)
[2024-04-18] MEDS: SYNTHROID 88 MCG PO (05:41)
[2024-04-18 06:13] LABS: Hemoglobin 7.3 g/dL (12.0-16.0); Mean Corp Hgb Conc. 33.2 g/dL (33.0-37.0); Mean Corpuscular Hgb 29.1 pg (27.0-31.0); Mean Corpuscular Volume 87.6 fL (81.0-99.0); Mean Platelet Volume 9.1 fL (7.4-10.4); Platelet Count 296 10^3/uL (130-400); Red Blood Cell Count 2.51 10^6/uL (4.20-5.40); Red Cell Dist. Width 15.6 % (11.5-14.5); White Blood Cell Count 10.6 10^3/uL (4.8-10.8)
[2024-04-18 06:21] LABS: Blood Urea Nitrogen 27 mg/dl (7-17); Calcium 9.6 mg/dl (8.4-10.2); Carbon Dioxide 22 mmol/L (22-30); Chloride 108 mmol/L (98-107); Estimated Creatinine Clearance 34 ml/min; Glucose 100 mg/dl (70-99); Potassium 4.2 mmol/L (3.5-5.1); Sodium 142 mmol/L (135-145); eGFR 56.95
--- NOTE | 2024-04-18 06:54 | CON.GI ---
Addendum entered and electronically signed by Yudi Nelson Do, MD 04/18/24 15:13:
I saw and examined the patient.
The RESIDENTIAL [employer]AMING CARPENTER's note was reviewed and I agree with the note.
Comment: Nereyda is an 78yo W with h/o CKD, HTN and mild who was admitted with painless hematochezia. She has chronic constipation as a child now worsened recently. She also has h/o GIB with recent admission for anemia without overt bloody
stools where enteroscopy and colonoscopy revealed cecal AVM that was cauterized end of February 2024. She currently denies abd pain, nausea/vomiting. Vitals stable, exam NTTP, NABS appears younger than stated age. Labs reviewed.
Impression
- Painless hematochezia
Suspect diverticular
- GI AVMs s/p cecal AVM cautery end of February 2024
- Chronic iron def anemia
- Mild
- CKD
- HTN
- DEEJAY
- severe MR
Recommendation
- Follow stool output
- H/H improved significantly post one unit PRBC transfusion
- CLD and anticipate advancement tomorrow as tolerates
- 2 large bore IVs
- In future 2 wks time recommend for her to use benefiber daily basis to treat her chronic constipation
Will follow with you. Family updated bedside
Original Note:
Consultation
-
Date/Time Consultation Requested: 04/17/241999
Date/Time Consultation Performed: 04/18/24 07
Requesting Provider: MARCELINO Zaragoza
Performing Provider: MARCELINO Greenwood, Yudi Pearson MD
Reason for Consultation: anemia/bleeding
Medical History
Chief Complaint / HPI
Chief Complaint: rectal bleeding
History of Present Illness:
Pt is an 78yo with hx CKD, HTN, CHF, hypertrophic obstructive CM, moderate to severe MR, mild , hypercholesterolemia, hypothyroidism, sleep apnea, prior anemia with hematology follow and prior iron infusions, Mediastinal and hilar
lymphadenopathy on CT in 08/2023 with oncology follow up. jejunal AVM's, diverticulosis, and hemorrhoids with onset of rectal bleeding rectal bleeding. In review with patient she had work up at [place] in 2015 with mid jejunal AVM , diverticulosis
and hemorrhoids. She was treated with oral iron and did not recall double balloon. She was then admitted in February with weakness and anemia. She completed SB enteroscopy with normal finding and colon with non bleeding hemorrhoids,
diverticulosis, 4 mm polyps IC valve single non bleeding colonic angiodysplastic lesion in cecum bx TA treated with APC. She had office follow up on 04/12 and completed hbg 04/13 noted 9.3. She is currently following with hematology and due for
iron infusion next week. She now returns with recurrent rectal bleeding with drop in hbg to 6.9. Pt states this bleeding was different from anemia in past in that she passed large volume of red blood with 5 episode over short period of time.
Pt admits to chronic dark stools with iron use and constipation prior to admission She denies dysphagia, GERD, nausea, vomiting, abdominal pain, or diarrhea. On daily ASA but no other anticoagulation.
Past Medical History
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
mediastinal and hilar lymphadenopathy)
Past Surgical History: Appendectomy, Gynecological (tubal ligation) and Tonsilectomy
Social History
Tobacco: Former Smoker
Alcohol: Occasional
Drug: None
Living: With Family
Employment: Retired
Family History
Family History: Other (no family hx colon Ca or polyps )
Allergies / Home Medications
Allergy/AdvReac Type Severity Reaction Status Date / Time
prednisone Allergy hypertensio Verified 04/17/24 15:40
n
�Medication �Instructions �Recorded
aspirin 81 mg tablet,delayed 81 mg PO QPM Blood Clot 06/23/15
release Prevention/Tx
levocetirizine 5 mg tablet 5 mg PO QPM Allergies 06/23/15
cyanocobalamin (vitamin B-12) 1,000 mcg PO QPM Supplement 08/08/23
1,000 mcg tablet (Vitamin B-12)
rosuvastatin 20 mg tablet 20 mg PO DAILY High Cholesterol 08/08/23
diltiazem HCl 120 mg 120 mg PO DAILY #30 caps 08/11/23
capsule,extended release 24 hr
lisinopril 20 mg tablet 20 mg PO DAILY #30 tabs 08/11/23
acetaminophen 500 mg tablet 1,000 mg PO Q6HPRN PRN mild pain 02/27/24
(Tylenol Extra Strength)
calcium 600 mg (as 2 tab PO DAILY Supplement 02/27/24
carbonate)-vitamin D3 10 mcg (400
unit) tablet (Calcium 600 + D(3))
carboxymethylcellulose sodium 1 % 1 drp BOTH EYES HS Eye Condition 02/27/24
eye liquid gel drops (Refresh
Liquigel)
ferrous sulfate 134 mg (27 mg 134 mg PO DAILY Supplement 02/27/24
iron) tablet
levothyroxine 88 mcg tablet 88 mcg PO DAILY Thyroid 02/27/24
metoprolol tartrate 50 mg tablet 75 mg PO BID Blood Pressure 02/27/24
montelukast 10 mg tablet 10 mg PO QPM Allergies 02/27/24
peg 400-propylene glycol 0.4 %-0.3 1 drp BOTH EYES DAILY Eye Condition 02/27/24
% eye drops (Systane Ultra)
therapeutic multivitamin 1 tab PO QPM Supplement 02/27/24
fluticasone propionate 50 1 spray intranasal DAILY Congestion 02/28/24
mcg/actuation nasal
spray,suspension (Flonase Allergy
Relief)
omeprazole 20 mg capsule,delayed 20 mg PO DAILY 04/17/24
release
Review of Systems
-
History Source: Patient and Family
Constitutional: Reports Weight Loss (few lb with low Na diet )
EENT: Reports No Symptoms
Respiratory: Reports No Symptoms
Cardiac: Reports No Symptoms
Abdomen/GI: Reports Constipated, Bloody Stools and Black Stools (chronic dark stools with iron use )
: Reports No Symptoms
Musculoskeletal: Reports No Symptoms
Skin: Reports No Symptoms
Neurological: Reports Weakness
Endocrine: Reports No Symptoms
Hematologic/Lymphatic: Reports Bleeding
Vital Signs
Temp Pulse Resp BP Pulse Ox
97.6 F 62 20 97/36 95
04/18/24 06:45 04/18/24 06:45 04/18/24 06:45 04/18/24 06:45 04/18/24 06:45
Physical Exam
Exam
General: Well Developed, Well Nourished and No Apparent Distress
HEENT: Normocephalic and Anicteric
Respiratory: Clear
Cardiac: Regular Rhythm
GI: Soft and Non Distended
Musculoskeletal: No Clubbing and No Cyanosis
Skin: Warm and Dry
Neuro: Awake, Alert and AO x 3
Psych: Calm
Results
WBC 10.6 10^3/uL (4.8-10.8) 04/18/24 05:35
Hgb Cancelled 04/18/24 08:00
Hct Cancelled 04/18/24 08:00
MCV 87.6 fL (81.0-99.0) 04/18/24 05:35
Plt Count 296 10^3/uL (130-400) D 04/18/24 05:35
Absolute Neuts (auto) 16.4 10^3/uL (1.4-6.5) H 04/17/24 15:47
PT 13.7 Sec (11.4-14.6) 04/17/24 16:20
INR 1.07 04/17/24 16:20
APTT 32.5 Sec (23.4-35.0) 04/17/24 16:20
Sodium 142 mmol/L (135-145) 04/18/24 05:35
Potassium 4.2 mmol/L (3.5-5.1) 04/18/24 05:35
Chloride 108 mmol/L (98-107) H 04/18/24 05:35
Carbon Dioxide 22 mmol/L (22-30) 04/18/24 05:35
BUN 27 mg/dl (7-17) H 04/18/24 05:35
Creatinine 1.0 mg/dL (0.6-1.0) 04/18/24 05:35
Calcium 9.6 mg/dl (8.4-10.2) 04/18/24 05:35
Total Bilirubin 0.3 mg/dl (0.2-1.3) 04/17/24 15:47
AST 22 U/L (14-36) 04/17/24 15:47
ALT 14 U/L (0-35) 04/17/24 15:47
Alkaline Phosphatase 62 U/L (38-126) 04/17/24 15:47
Diagnostic Image Results:
Prior GI Procedures:
02/29/24 Small bowel enteroscopy - Normal esophagus, stomach, duodenum, proximal jejunum normal no specimens collected
02/29/24 colonoscopy - Non-bleeding internal hemorrhoids.- Diverticulosis in the sigmoid colon and in the descending colon.- The examination was otherwise normal. normal ileum, 4 mm polyp at IC valve, removal with jumbo forceps, resected or
retrieved, single non bleeding colon angiodysplastic lesion in cecum treated with APC bx TA
EGD: 2016 [place] completed mild bile reflux and duodenum was normal bx neg
capsule 2016 2 small non bleeding AVM's in mid jejunum pt did not recall double balloon
Colonoscopy: 2013 with diverticulosis and hemorrhoids.
Assessment / Plan
-
Pt is an 78yo with hx CKD, HTN, CHF, hypertrophic obstructive CM, moderate to severe MR, mild , hypercholesterolemia, hypothyroidism, sleep apnea, prior anemia with hematology follow and prior iron infusions, Mediastinal and hilar
lymphadenopathy on CT in 08/2023 with oncology follow up. jejunal AVM's, diverticulosis, and hemorrhoids with onset of rectal bleeding rectal bleeding. In review with patient she had work up at [place] in 2015 with mid jejunal AVM , diverticulosis
and hemorrhoids. She was treated with oral iron and did not recall double balloon. She was then admitted in February with weakness and anemia. She completed SB enteroscopy with normal finding and colon with non bleeding hemorrhoids,
diverticulosis, 4 mm polyps IC valve single non bleeding colonic angiodysplastic lesion in cecum bx TA treated with APC. She had office follow up on 04/12 and completed hbg 04/13 noted 9.3. She is currently following with hematology and due for
iron infusion next week. She now returns with recurrent rectal bleeding with drop in hbg to 6.9. Pt states this bleeding was different from anemia in past in that she passed large volume of red blood with 5 episode over short period of time.
-sudden onset of large volume rectal bleeding concern for diverticular bleed
-hx recent admission with anemia and concern for slow GI bleed possible AVM related vs other
-hx iron deficiency anemia
-hx untreated jejunal AVM's 2016 pt did not recall double balloon
-HFpEF
-hypertrophic obstructive CM with [place] [facility] follow
-hx moderate to severe
other med problems:
-hx colon polyps
-Mediastinal and hilar lymphadenopathy on CT in 08/2023
-CKD
-mild
-hypercholesterolemia
-hypothyroidism
-sleep apnea
-diverticulosis
-hemorrhoids
PLAN:
Etiology fo acute bleeding related to diverticular bleed vs other
bleeding now improved last stool in ER last PM
trend hbg-- some drop overnight to 6.9 -getting transfusion now
add iron studies, b12, folate to pretransfusion labs
ok for clears
cont PPI
if recurrent bleeding consider CTA if + angio
for chronic anemia due for iron infusion on Tuesday
if anemia persists with chronic bleeding t/c capsule endoscopy with hx jejunal AVM noted in 2016 without treatment
will follow
-
-
Thank you for consultation and allowing me to participate in the patient's care. Please call the counter professional GI physician during the after hours with any questions or concerns.
[2024-04-18] MEDS: CARDIZEM CD PO (07:52)
[2024-04-18] MEDS: LOPRESSOR PO (07:53)
[2024-04-18] MEDS: OSCAL 500 + D 1000 MG PO (07:56)
[2024-04-18] MEDS: ZESTRIL PO (07:56)
[2024-04-18] MEDS: FEOSOL 325 MG PO (07:56)
[2024-04-18] MEDS: CRESTOR 20 MG PO (07:56)
[2024-04-18] MEDS: REFRESH EYE DROPS (PF) 1 DROPS BOTH EYES ×2 (07:57→21:43)
[2024-04-18] MEDS: PROTONIX IV 40 MG IV (07:57)
[2024-04-18] MEDS: NSS (PRESERVATIVE FREE) 10 ML IV (07:57)
[2024-04-18] MEDS: CARDIZEM CD 120 MG PO (09:46)
[2024-04-18] MEDS: LOPRESSOR 75 MG PO ×2 (09:47→20:33)
[2024-04-18] MEDS: ZESTRIL 20 MG PO (09:47)
[2024-04-18 10:25] LABS: Iron 34 ug/dl (37-170)
[2024-04-18 10:36] LABS: Percent Saturation 12 % (20-50); Total Iron Binding Capacity 266 ug/dl (265-497)
[2024-04-18 10:58] LABS: Ferritin 44.4 ng/ml (11.1-264.0)
[2024-04-18 11:29] LABS: Folate > 20.0 ng/ml (2.76-20); Vitamin B12 763 pg/ml (239-931)
--- NOTE | 2024-04-18 11:47 | W.PN.HOSP.TC ---
Today's Communication/Plan
-
monitor Hgb
may need further blood
Assessment / Plan
Assessment / Plan
#Acute on chronic anemia likely from lower GI bleed
AVM vs hemorrhoidal
#recent Colonoscopy (02/28) with Non-bleeding internal hemorrhoids. Diverticulosis in the sigmoid colon and in the descending colon.4 mm polyp at the ileocecal valve, removed with a jumbo cold forceps. Resected and retrieved.A single non-bleeding
colonic angiodysplastic lesion in cecum. Treated with argon plasma coagulation (APC)
- recent EGD within normal likely from internal hemorrhoids
-Hemoglobin 8.4-->7.0-->6.9-transfuse 1 unit PRBC-->7.3
-Consented for blood in ER
-Trend H&H
-Clear liquid diet for now
-IV PPI
-GI consult appreciated
Fe sat 12%/Ferritin 44.4
will order IV Fe
#Leukocytosis better
WBC 20.2-->10.6
#mediastinal lymphadenopathy
-patient is afebrile
-ctm
#Chronic HFpEF/Hypertrophic Obstructive Cardiomyopathy
- no exacerbation
#Essential Hypertension-Continue Cardizem, Metoprolol and Lisinopril with hold parameter
#Hyperlipidemia-Continue rosuvastatin
#Hypothyroidism-Continue Levothyroxine
#Obstructive Sleep Apnea-Continue CPAP
#DVT proph: SCDs
#Code Status: full code
Anticipated Discharge: > 48 hours
Subjective/Interval History
-
Date of Service: April 18, 2024
In good spirits, still feels weak
Objective Data
-
Labs:
Laboratory Results
04/18/24 04/18/24 04/18/24
00:16 04:05 05:35
WBC 10.6
Hgb 7.0 L 6.9 L* 7.3 L
Hct 20.7 L* 21.1 L 22.0 L
Plt Count 296 D
Sodium 142
Potassium 4.2
Chloride 108 H
Carbon Dioxide 22
BUN 27 H
Creatinine 1.0
Glucose 100 H
Calcium 9.6
04/18/24 04/18/24 04/18/24
08:00 12:00 16:00
WBC
Hgb Cancelled Pending Pending
Hct Cancelled Pending Pending
Plt Count
Sodium
Potassium
Chloride
Carbon Dioxide
BUN
Creatinine
Glucose
Calcium
Vital Signs:
Vital Signs
Temp Pulse Resp BP Pulse Ox
99.0 F 59 14 109/51 98
04/18/24 11:05 04/18/24 11:05 04/18/24 11:05 04/18/24 11:05 04/18/24 11:05
I&O
04/17/24 04/18/24 04/19/24
06:59 06:59 06:59
Intake Total 480 / 480 250 / 250
Balance 480 / 480 250 / 250
Review of Systems
-
History Source: Patient and Family (gnd dgt in room)
Constitutional: Denies Fever
EENT: Reports No Symptoms Reported
Respiratory: Reports No Symptoms
Cardiac: Reports No Symptoms; Denies Chest Pain
Abdomen/GI: Reports Bloody Stools (though none yet today)
Musculoskeletal: Reports No Symptoms
Physical Exam
-
General: Well Developed, Well Nourished and No Apparent Distress
HEENT: Normocephalic, Atraumatic and Moist Mucous Membranes
Respiratory: Clear to Auscultation; Negative Wheezes, Rales or Rhonchi
Cardiac: Regular Rhythm, S1/S2 and Murmur (3/6 deepak)
GI: Soft, Nontender and Nondistended
Musculoskeletal: No Clubbing, No Cyanosis and No Edema
[2024-04-18 12:27] LABS: Hematocrit 25.6 % (37.0-47.0); Hemoglobin 8.5 g/dL (12.0-16.0)
--- NOTE | 2024-04-18 12:33 | PTCARENOTE ---
Blood transfusion completed at 1000. Patient tolerated well. H&H checked 2 hours post transfusion. Hgb is 8.5. GI switched patient to CLD. Patient does not report any bloody bm at this time.
[2024-04-18] MEDS: FERRLECIT 110 MG IV (14:08)
[2024-04-18 16:48] LABS: Hematocrit 26.7 % (37.0-47.0); Hemoglobin 8.9 g/dL (12.0-16.0)
--- NOTE | 2024-04-18 16:55 | PTCARENOTE ---
GI ok'd aspirin to be given 1800 dose.
[2024-04-18] MEDS: SINGULAIR 10 MG PO (17:02)
[2024-04-18] MEDS: VITAMIN B-12 1000 MCG PO (17:02)
[2024-04-18] MEDS: ASPIR LOW (ENTERIC COATED) 81 MG PO (17:02)
[2024-04-18] MEDS: THERAGRAN 1 TABLET PO (17:02)
[2024-04-18] MEDS: ZYRTEC 5 MG PO (17:02)
[2024-04-19 03:30] VITALS: BP 114/47
[2024-04-19] MEDS: SYNTHROID 88 MCG PO (05:23)
[2024-04-19 05:28] VITALS: BMI 29.4
[2024-04-19 07:05] VITALS: BP 106/51
[2024-04-19 07:27] LABS: % Basophils 0.7 % (0-2); % Eosinophils 9.9 % (0-6); % Immature Granulocytes 0.9 % (0-0.5); % Lymphocytes 19.2 % (20.5-51.1); % Monocytes 10.7 % (1.7-9.3); % Neutrophils 58.6 % (42.2-75.2); Absolute Basophils 0.1 10^3/uL (0-0.2); Absolute Eosinophils 1.1 10^3/uL (0-0.7); Absolute Immature Granulocytes 0.1 10^3/uL (0-0.05); Absolute Lymphocytes 2.1 10^3/uL (1.2-3.4); Absolute Monocytes 1.2 10^3/uL (0.1-0.6); Absolute Neutrophils 6.3 10^3/uL (1.4-6.5); Hematocrit 25.1 % (37.0-47.0); Hemoglobin 8.2 g/dL (12.0-16.0); Mean Corp Hgb Conc. 32.7 g/dL (33.0-37.0); Mean Corpuscular Hgb 27.9 pg (27.0-31.0); Mean Corpuscular Volume 85.4 fL (81.0-99.0); Mean Platelet Volume 9.4 fL (7.4-10.4); Nucleated Red Blood Cells % 0 %; Platelet Count 319 10^3/uL (130-400); Red Blood Cell Count 2.94 10^6/uL (4.20-5.40); Red Cell Dist. Width 16.7 % (11.5-14.5); White Blood Cell Count 10.8 10^3/uL (4.8-10.8)
[2024-04-19 07:52] LABS: Blood Urea Nitrogen 19 mg/dl (7-17); Calcium 9.6 mg/dl (8.4-10.2); Carbon Dioxide 25 mmol/L (22-30); Chloride 107 mmol/L (98-107); Estimated Creatinine Clearance 34 ml/min; Glucose 90 mg/dl (70-99); Potassium 4.4 mmol/L (3.5-5.1); Sodium 143 mmol/L (135-145); eGFR 56.95
--- NOTE | 2024-04-19 08:13 | W.PN.GI.CBS2 ---
Addendum entered and electronically signed by Yudi Nelson Do, MD 04/19/24 09:18:
I saw and examined the patient.
The TACKER [employer]IC BAND's note was reviewed and I agree with the note.
Comment: No further rectal bleeding. Denies abd pain. N/V. Vitals stable. NTTP, NABS, well appearing. Labs H/H stable.
Recommendations
- Ok to adv to LRD
- Start benefiber OP in 2 wks time for chronic constipation
- If tolerates LRD and no further bleeding ok from GI Pers[facility] for hosp d/c
GI will sign off please call for questions.
She will FU with me in office--contact info provided
Original Note:
Today's Communication / Plan
-
Etiology fo acute bleeding related to diverticular bleed vs other
brown stool this am
hbg stable 8.2 with 1 unit transfused during admission and s/p IV iron -- was due OP infusion to review with Dr. Galvan need for additional infusion after admission
advance to low residue diet
cont PPI
if tolerating diet and no further bleeding consider discharge later today
reviewed with patient if if recurrent bleeding after discharge return to hospital and will need to consider CTA
pt to schedule OP follow up if anemia persists with chronic bleeding t/c capsule endoscopy with hx jejunal AVM noted in 2015 without treatment
Assessment / Plan
-
Pt is an 78yo with hx CKD, HTN, CHF, hypertrophic obstructive CM, moderate to severe MR, mild , hypercholesterolemia, hypothyroidism, sleep apnea, prior anemia with hematology follow and prior iron infusions, Mediastinal and hilar
lymphadenopathy on CT in 08/2023 with oncology follow up. jejunal AVM's, diverticulosis, and hemorrhoids with onset of rectal bleeding rectal bleeding. In review with patient she had work up at [facility] in 2015 with mid jejunal AVM , diverticulosis
and hemorrhoids. She was treated with oral iron and did not recall double balloon. She was then admitted in February with weakness and anemia. She completed SB enteroscopy with normal finding and colon with non bleeding hemorrhoids,
diverticulosis, 4 mm polyps IC valve single non bleeding colonic angiodysplastic lesion in cecum bx TA treated with APC. She had office follow up on 04/12 and completed hbg 04/13 noted 9.3. She is currently following with hematology and due for
iron infusion next week. She now returns with recurrent rectal bleeding with drop in hbg to 6.9. Pt states this bleeding was different from anemia in past in that she passed large volume of red blood with 5 episode over short period of time.
-sudden onset of large volume rectal bleeding concern for diverticular bleed
-hx recent admission with anemia and concern for slow GI bleed possible AVM related vs other
-hx iron deficiency anemia with continued low iron
-hx untreated jejunal AVM's 2016 pt did not recall double balloon
-HFpEF
-hypertrophic obstructive CM with [facility] [place] [facility] follow
-hx moderate to severe
other med problems:
-hx colon polyps
-Mediastinal and hilar lymphadenopathy on CT in 08/2023
-CKD
-mild
-hypercholesterolemia
-hypothyroidism
-sleep apnea
-diverticulosis
-hemorrhoids
PLAN:
Etiology fo acute bleeding related to diverticular bleed vs other
brown stool this am
hbg stable 8.2 with 1 unit transfused during admission and s/p IV iron -- was due OP infusion to review with Dr. Galvan need for additional infusion after admission
advance to low residue diet
cont PPI
if tolerating diet and no further bleeding consider discharge later today
reviewed with patient if if recurrent bleeding after discharge return to hospital and will need to consider CTA
pt to schedule OP follow up if anemia persists with chronic bleeding t/c capsule endoscopy with hx jejunal AVM noted in 2016 without treatment
Subjective
Subjective
Date of Service: April 19, 2024
Pt with brown stool this am, tolerating full liquid diet feeling better
Objective
Data Reviewed
Laboratory Data:
Laboratory Results
04/19/24 05:25
04/19/24 05:25
Laboratory Results
PT 13.7 Sec (11.4-14.6) 04/17/24 16:20
INR 1.07 04/17/24 16:20
APTT 32.5 Sec (23.4-35.0) 04/17/24 16:20
Total Bilirubin 0.3 mg/dl (0.2-1.3) 04/17/24 15:47
AST 22 U/L (14-36) 04/17/24 15:47
ALT 14 U/L (0-35) 04/17/24 15:47
Alkaline Phosphatase 62 U/L (38-126) 04/17/24 15:47
Vital Signs and I&O:
Vital Signs
Temp Pulse Resp BP Pulse Ox
98.9 F 50 18 114/47 100
04/19/24 03:30 04/19/24 03:30 04/19/24 03:30 04/19/24 03:30 04/19/24 03:30
I&O
04/18/24 04/19/24 04/20/24
06:59 06:59 06:59
Intake Total 480 / 480 2049
Balance 480 / 480 2049
Physical Exam
Physical Exam
HEENT: Anicteric and Moist mucous membranes
Cardiology: Normal Sinus Rhythm and Murmur
Pulmonary: Clear
GI: Soft, Non Distended and Non Tender
Extremities: No Edema
Neuro: Non Focal
--- NOTE | 2024-04-19 08:38 | CM ---
met with patient and graddaughter at bedside.patient lives with her granddaughter in house with 2 megan,her bed and bath is on the second level,she amb i and is I with her adl.she has neer had a vn or been to ip rehab.
PCP: dr letitia weir Pharmacy:[facility]
PMH:chf,hypolipidemia,htn ,tony on cpap,chronic anemia
DME: uses a cpap at night and o2 at 3 litrs nc at night
Patient is adm with a gib.she has had 2 units prbc,on clear liqquids,monitor hgb,iv ppi,wbc improved,may need add blood.Plan:home with no needs.
[2024-04-19] MEDS: CARDIZEM CD PO (08:56)
[2024-04-19] MEDS: ZESTRIL PO (08:56)
[2024-04-19] MEDS: LOPRESSOR PO (08:56)
[2024-04-19] MEDS: PROTONIX IV 40 MG IV (08:57)
[2024-04-19] MEDS: NSS (PRESERVATIVE FREE) 10 ML IV (08:57)
[2024-04-19] MEDS: CRESTOR 20 MG PO (08:57)
[2024-04-19] MEDS: REFRESH EYE DROPS (PF) 1 DROPS BOTH EYES (08:57)
[2024-04-19] MEDS: OSCAL 500 + D 1000 MG PO (08:57)
[2024-04-19] MEDS: LOPRESSOR 75 MG PO (10:38)
[2024-04-19] MEDS: CARDIZEM CD 120 MG PO (10:38)
[2024-04-19] MEDS: ZESTRIL 20 MG PO (10:41)
--- NOTE | 2024-04-19 10:53 | PN.CDI ---
CDI
- -
CDI:
Physician Documentation Request
Admit Date: 04/17/24 18:22
Dear Doctor Herve,
Please review the following and provide your response in the progress notes.
Clinical Indicators:
Pt admitted with Acute Anemia due to GI bleed /possible Diverticular bleed
Documented per GI consult and progress notes, 'hx CKD...'
Renal functions are as below
04/17/24 04/18/24 04/19/24
15:47 05:35 05:25
Creatinine 1.1 H 1.0 1.0
eGFR 50.80 56.95 56.95
Please provide the suspected stage of CKD:
Stages of Chronic Kidney Disease*
Level Description GFR
G1 Normal or High >90
G2 Mildly decreased 60-89
G3a Mildly to moderately decreased 45-59
G3b Moderately to severely decreased 30-44
G4 Severely decreased 15-29
G5 Kidney failure <15
Use of terms such as suspected, likely, concern for, or probable (associated with a specific diagnosis that is being evaluated, monitored, or treated as if it exists) are acceptable and can be coded in the inpatient setting, when documented at the
time of discharge.
Thank you,
Gayathri Bains RN
CDI Specialist
[place] [facility]
Please use your independent medical judgment in providing your response.
*Source: Kidney Disease: Improving Global Outcomes (KDIGO) 2012
[2024-04-19 11:00] VITALS: BP 139/52
[2024-04-19] MEDS: FERRLECIT 110 MG IV (13:42)
--- NOTE | 2024-04-19 14:06 | W.PN.HOSP.TC ---
Today's Communication/Plan
-
dc to home
Assessment / Plan
Assessment / Plan
#Acute on chronic anemia likely from lower GI bleed
AVM vs hemorrhoidal vs diverticular (as per GI, last one most likely)
#recent Colonoscopy (02/28) with Non-bleeding internal hemorrhoids. Diverticulosis in the sigmoid colon and in the descending colon.4 mm polyp at the ileocecal valve, removed with a jumbo cold forceps. Resected and retrieved.A single non-bleeding
colonic angiodysplastic lesion in cecum. Treated with argon plasma coagulation (APC)
- recent EGD within normal likely from internal hemorrhoids
-Hemoglobin 8.4-->7.0-->6.9-transfuse 1 unit PRBC-->8.5-->8.9-->8.2
-Consented for blood in ER
-diet advanced and is tolerating
-IV PPI
-GI consult appreciated
Fe sat 12%/Ferritin 44.4
Pt has received IV Fe
#Leukocytosis better
WBC 20.2-->10.6-->10.8
#mediastinal lymphadenopathy
-patient is afebrile
CKD 3a by hx
#Chronic HFpEF/Hypertrophic Obstructive Cardiomyopathy
- no exacerbation, has appt with Dr. Tapia at [facility] on May 16
#Essential Hypertension-Continue Cardizem, Metoprolol and Lisinopril with hold parameter
#Hyperlipidemia-Continue rosuvastatin
#Hypothyroidism-Continue Levothyroxine
#Obstructive Sleep Apnea-Continue CPAP
#DVT proph: SCDs
#Code Status: full code
dc now
see dictated note
More than 30 minutes spent in discharge including
Final examination of the patient
Summarizing hospital stay
Instructions for continuing care to all relevant caregivers
Preparation of discharge records, prescriptions, and referral forms
Total time spent (in minutes): 45
Anticipated Discharge: Today
Subjective/Interval History
-
Date of Service: April 19, 2024
Feels well, in good spirits
Objective Data
-
Labs:
Laboratory Results
04/19/24
05:25
WBC 10.8
Hgb 8.2 L
Hct 25.1 L
Plt Count 319
Sodium 143
Potassium 4.4
Chloride 107
Carbon Dioxide 25
BUN 19 H
Creatinine 1.0
Glucose 90
Calcium 9.6
Vital Signs:
Vital Signs
Temp Pulse Resp BP Pulse Ox
98.4 F 55 18 139/52 96
04/19/24 11:00 04/19/24 11:00 04/19/24 11:00 04/19/24 11:00 04/19/24 11:00
I&O
04/18/24 04/19/24 04/20/24
06:59 06:59 06:59
Intake Total 480 / 480 2049
Balance 480 / 480 2049
Review of Systems
-
History Source: Patient
Constitutional: Denies Fever
EENT: Reports No Symptoms Reported
Respiratory: Reports No Symptoms
Cardiac: Reports No Symptoms; Denies Chest Pain
Abdomen/GI: Reports Bloody Stools (appears to have esolved)
Musculoskeletal: Reports No Symptoms
Physical Exam
-
General: Well Developed, Well Nourished and No Apparent Distress
HEENT: Normocephalic, Atraumatic and Moist Mucous Membranes
Respiratory: Clear to Auscultation; Negative Wheezes, Rales or Rhonchi
Cardiac: Regular Rhythm, S1/S2 and Murmur (3/6 deepak)
GI: Soft, Nontender and Nondistended
Musculoskeletal: No Clubbing, No Cyanosis and No Edema
--- NOTE | 2024-04-19 14:29 | W.DS.TRANS ---
DC Summary - Crisis Clinician
-
Discharge Instructions:
Discharge Diagnosis/Procedures Lower GI Bleed
Diet Regular
Activity No strenuous activity
Driving Restrictions Not until seen by your Dr
Blood Work cbc in 1 week
Instructions:
Stand-Alone Forms:
Changes to Home Medications: Yes
Discharge Medications:
DC Medications w/original date entered in [employer]
aspirin 81 mg tablet,delayed release 81 mg PO QPM Blood Clot Prevention/Tx 06/23/15
levocetirizine 5 mg tablet 5 mg PO QPM Allergies 06/23/15
cyanocobalamin (vitamin B-12) 1,000 mcg tablet (Vitamin B-12) 1,000 mcg PO QPM Supplement 08/08/23
rosuvastatin 20 mg tablet 20 mg PO DAILY High Cholesterol 08/08/23
diltiazem HCl 120 mg capsule,extended release 24 hr 120 mg PO DAILY #30 caps 08/11/23
lisinopril 20 mg tablet 20 mg PO DAILY #30 tabs 08/11/23
acetaminophen 500 mg tablet (Tylenol Extra Strength) 1,000 mg PO Q6HPRN PRN mild pain 02/27/24
calcium 600 mg (as carbonate)-vitamin D3 10 mcg (400 unit) tablet (Calcium 600 + D(3)) 2 tab PO DAILY Supplement 02/27/24
carboxymethylcellulose sodium 1 % eye liquid gel drops (Refresh Liquigel) 1 drp BOTH EYES HS Eye Condition 02/27/24
levothyroxine 88 mcg tablet 88 mcg PO DAILY Thyroid 02/27/24
metoprolol tartrate 50 mg tablet 75 mg PO BID Blood Pressure 02/27/24
montelukast 10 mg tablet 10 mg PO QPM Allergies 02/27/24
peg 400-propylene glycol 0.4 %-0.3 % eye drops (Systane Ultra) 1 drp BOTH EYES DAILY Eye Condition 02/27/24
therapeutic multivitamin 1 tab PO QPM Supplement 02/27/24
fluticasone propionate 50 mcg/actuation nasal spray,suspension (Flonase Allergy Relief) 1 spray intranasal DAILY Congestion 02/28/24
omeprazole 20 mg capsule,delayed release 20 mg PO DAILY Gastrointestinal Issue 04/17/24
Home Medication Changes
stop oral iron
check with cardio whether aspirin can be stopped
Pending Results: No
--- NOTE | 2024-04-19 14:37 | CM ---
patient seen at bedside.
IMM explained & signed. In chart.
PLAN: Discharge to home, no needs
to transport
[2024-04-19 15:05] VITALS: BP 102/45
== END 2024-04-19 16:40 | disposition home or self-care (01) | DRG 811 ==
LOC: 2 NORTH 18:22
PROVIDERS: Nurse Practitioner Adult Health; Nurse Practitioner Family; Registered Nurse; ADMITTING PHYSICIAN Internal Medicine; CONSULT PHYSICIAN Internal Medicine Gastroenterology; EMERGENCY PHYSICIAN Emergency Medicine; FAMILY PHYSICIAN Family Medicine
PROC: 30233N1 Transfusion of Nonautologous Red Blood Cells into Peripheral Vein, Percutaneous Approach (ICD-10-PCS; 2024-04-18)
DX: D62 Acute posthemorrhagic anemia (principal); K55.21 Angiodysplasia of colon with hemorrhage; K57.31 Diverticulosis of large intestine without perforation or abscess with bleeding; I50.32 Chronic diastolic (congestive) heart failure; I42.1 Obstructive hypertrophic cardiomyopathy; G47.33 Obstructive sleep apnea (adult) (pediatric); E03.9 Hypothyroidism, unspecified; N18.31 Chronic kidney disease, stage 3a; I08.0 Rheumatic disorders of both mitral and aortic valves; K64.8 Other hemorrhoids; E78.00 Pure hypercholesterolemia, unspecified; D72.829 Elevated white blood cell count, unspecified; I10 Essential (primary) hypertension; Z79.890 Hormone replacement therapy; Z88.8 Allergy status to other drugs, medicaments and biological substances; Z79.82 Long term (current) use of aspirin; Z86.0100 Personal history of colon polyps, unspecified; Z87.891 Personal history of nicotine dependence
CPT/HCPCS: 80048; 80053; 82607; 82728; 82746; 83540; 83550; 85014; 85018; 85025; 85027; 85610; 85730; 86850; 86900; 86901; 86920; 86922; 94660; 99285; J2916; P9016

== ENCOUNTER → 2024-04-27 10:39 | Outpatient (REF) | payer OTHER, SELFPAY | LOC: RAD 10:39 | PROVIDERS: ATTENDING PHYSICIAN Internal Medicine; FAMILY PHYSICIAN Family Medicine; OTHER PHYSICIAN Internal Medicine Hematology & Oncology | DX: N17.9 Acute kidney failure, unspecified (principal); D50.9 Iron deficiency anemia, unspecified; D51.9 Vitamin B12 deficiency anemia, unspecified; Q27.33 Arteriovenous malformation of digestive system vessel | CPT/HCPCS: 71260; 76770; Q9967 ==

== ENCOUNTER → 2024-06-28 18:11 | Outpatient (REF) | payer OTHER, SELFPAY | LOC: RAD 18:11 | PROVIDERS: ATTENDING PHYSICIAN Nurse Practitioner Adult Health | DX: R05.1 Acute cough (principal); R50.9 Fever, unspecified | CPT/HCPCS: 71046 ==

== ENCOUNTER 2024-11-28 09:48 | Emergency (ER) | payer OTHER, SELFPAY ==
[2024-11-28] VITALS (11 sets, daily range): BP systolic 96–145; BP diastolic 41–82
--- NOTE | 2024-11-28 11:25 | ED.GENMED ---
History of Present Illness
General
Chief Complaint: Abdominal Symptoms
Source: patient and family
Exam Limitations: none
Time Seen by Provider: 11/28/24 11:01
Nursing documentation reviewed up to this point in time: agreed with
History of Present Illness
History of Present Illness:
María Robison Rm 19
79 yo female w h/o CHF, HTN, HLD, GI bleed, hypothyroid, anxiety, sleep apnea with 3L n.c. O2 at night
Here for general weakness past two days.
Yesterday, letting the dog out, felt extremely weak and �boom, went down.� Fell out of the door, bruised left elbow and right upper eyelid, scraped left knee. No significant head impact.
Today 8:30 a.m. granddaughter heard pt in bathroom making �funny sounds,� found pt sitting on toilet, unresponsive, eyes rolled back, �out of it,� for about 30 seconds, then more responsive. Called 911.
Pt states she felt well until two evenings ago when she �just didn�t feel 100%.�
Has been nauseous but no vomiting. Feels generally weak.
Yesterday had unusual 6 bowel movements, the last one being non bloody liquid diarrhea
She started a new medication in late July this year, Camzyos 2.5 mg daily and had to have echocardiogram and EKG every month for 3 months, next cardiac visit is with Chris Alexander in January.
Initial exam: BP 88/59 then 105/56 rechecked.
Past History
Past History
ED Past Medical History: CHF, HTN, Hypercholesterolemia and Hypothyroidism
ED Past Surgical History: Appendectomy and Gynecological
Social History
Tobacco: Non-smoker
Alcohol: None
Drug: None
Personal:
Living: with family
Employment: Retired
Family History
Family History: Other (Noncontributory)
Review of Systems
Review of Systems
Allergies reviewed?: Yes
All Other Systems: ROS reviewed and negative except as documented in HPI and ROS
Constitutional: Reports fever and fatigue
Cardiac: Denies chest pain
ABD/GI: Denies abdominal pain, nausea, vomiting or diarrhea
: Denies dysuria, frequency or difficulty voiding
Musculoskeletal: Reports no symptoms; Denies edema
Skin: Reports other (mild bruise upper right eyelid, left elbow)
Neurological: Reports weakness (generalized); Denies dizzy, headache or numbness
Phy Exam
Physical Exam
Physical Exam:
GENERAL: No acute distress. A&Ox3.
CONSTITUTIONAL: Afebrile.
EYES: clear, conjunctivae normal
ENMT: moist mucus membranes, Pharynx nl
RESPIRATORY: Regular respirations, nonlabored, lungs clear.
CARDIOVASCULAR: Regular rate and rhythm, no murmurs, no rubs.
GI: Soft, nontender, normal BS
MUSCULOSKELETAL: No spinal bony tenderness. No L elbow tenderness, full ROM. Moves with ease. Well perfused.
SKIN: Warm, dry, pink. mild ecchymosis right upper eyelid, mild ecchymosis.
PSYCH: Normal mood and affect. Well kept, interactive and appropriate
NEUROLOGIC: Awake, alert and oriented. Speech clear. Cranial nerves II through XII intact. No focal neurological deficits
Course
Orders/Labs/Results
Orders:
Orders
11/28/24
Electrocardiogram (*1) Stat
Reason for Study: Chest Pain
Comment: DONE
11/28/24 10:00
Electrocardiogram (*1) Urgent
Reason for Study: Fatigue / Weakness
EKG- Treatment ONCE
11/28/24 11:24
CT Head W/o Iv Contrast Urgent
Comment:
Reason For Exam: syncope
Orthostatic VS- Treatment ONCE
11/28/24 11:25
0.9% Sodium Chloride 1000 ml [Nss] 1,000 ml IV BOLUS
11/28/24 11:32
COVID-19 Antigen Urgent
Source: Nasal Swab
Complete Blood Count/With Diff Urgent
Comprehensive Metabolic Panel Urgent
TSH Reflex To Free T4 Urgent
Urinalysis Reflex To Culture Urgent
Date Specimen was Collected: 11/28/24
Time Specimen was Collected: 11:15
Urine Microscopic Reflex Cult Urgent
Influenza A+B Rapid Molecular Urgent
KRAIG Source: Nasal Swab
Specimen Description:
Abnormal Lab Results
11/28/24
11:32
RBC 4.16 L 10^6/uL
(4.20-5.40)
Hct 36.8 L %
(37.0-47.0)
Absolute Lymphs (auto) 0.5 L 10^3/uL
(1.2-3.4)
Immature Gran % 0.6 H %
(0-0.5)
Neutrophils % 79.8 H %
(42.2-75.2)
Lymphocytes % 11.2 L %
(20.5-51.1)
Sodium 131 L mmol/L
(135-145)
Glucose 123 H mg/dl
(70-99)
AST 44 H U/L
(14-36)
Urine Bacteria (Reflex) Few A
(Negative)
Urine Albumin (Reflex) 1+ A
(Neg - Trace)
11/28/24 11:32
11/28/24 11:32
Vital Signs
Initial and Last Documented VS:
Initial Vital Signs
Temp Pulse Resp BP Pulse Ox
97.4 F 51 16 96/41 96
11/28/24 09:57 11/28/24 09:57 11/28/24 09:57 11/28/24 09:57 11/28/24 09:57
Last Documented Vital Signs
Temp Pulse Resp BP Pulse Ox
97.4 F 63 17 118/54 93
11/28/24 09:57 11/28/24 16:00 11/28/24 16:00 11/28/24 16:00 11/28/24 16:00
MDM/Problems Addressed
Differential Diagnosis Includes:
Vasovagal episode on toilet,
MDM/Problems Addressed:
( computer Downtime)
79 yo female w h/o CHF, HTN, HLD, GI bleed, hypothyroid, anxiety, sleep apnea with 3L n.c. O2 at night
Here for general weakness past two days.
Yesterday, letting the dog out, felt extremely weak and �boom, went down.� Fell out of the door, bruised left elbow and right upper eyelid, scraped left knee. No significant head impact.
Today 8:30 a.m. granddaughter heard pt in bathroom making �funny sounds,� found pt sitting on toilet, unresponsive, eyes rolled back, �out of it,� for about 30 seconds, then more responsive. Called 911.
Pt states she felt well until two evenings ago when she �just didn�t feel 100%.�
Has been nauseous but no vomiting. Feels generally weak.
Yesterday had unusual 6 bowel movements, the last one being non bloody liquid diarrhea
She started a new medication in late July this year, Camzyos 2.5 mg daily and had to have echocardiogram and EKG every month for 3 months, next cardiac visit is with Chris Alexander in January.
Initial exam: BP 88/59 then 105/56 rechecked.
EKG, sinus bradycardia with first-degree AV block: No change from previous
3:55 p.m.
CBC: no clinically significant abnormality
CMP: No clinically significant abnormality
TSH normal
COVID-negative
Head CT negative
U/A neg
Pt has been OOB and ambulating well with this examiner.
Offered admission for further workup for questionable syncope/near syncope but patient and family are comfortable going home. Return instructions reviewed.
Her son's works at their PCP office and will get her in for recheck in 2 days.
*EKG
EKG Intrepretation Date: 11/28/24
Interpretation: abnormal
Comparison EKG: no changes
Heart Rate: 52
Rate: bradycardiac
Rhythm: sinus
[place]: normal axis
Interval: first degree heart block
QRS Pattern: normal QRS
Ischemia: no ischemia
*Critical Care Note
Total Time (30-74mins, 75-104mins- exclusive of procedures): Not Applicable
ED Attending Note
-
Portions of this chart may have been created with voice recognition software.� Occasional wrong word or��sound alike� substitutions may have occurred due to the inherent limitations of voice recognition software.
Discharge Plan
Departure
Patient Disposition: Home (Routine Discharge)
Date of Disposition: 11/28/24
Time of Disposition: 16:03
Patient with high blood pressure during this ER visit?: No
Condition: Good
Discharge Problem:
Fall from slip, trip, or stumble, Near syncope, General weakness
Instructions: Vasovagal Response, Weakness - ED discharge instructions
Prescriptions:
No Action
levocetirizine 5 MG tablet
5 mg PO QPM
cyanocobalamin (vitamin B-12) [Vitamin B-12] 1,000 mcg Tablet
1,000 mcg PO QPM
rosuvastatin 20 mg Tablet
20 mg PO QPM
lisinopril 20 mg Tablet
20 mg PO DAILY Qty: 30 0RF
diltiazem HCl 120 mg Capsule,Extended Release 24hr
120 mg PO DAILY Qty: 30 0RF
levothyroxine 88 mcg Tablet
88 mcg PO DAILY
montelukast 10 mg Tablet
10 mg PO QPM
metoprolol tartrate 50 mg tablet
75 mg PO BID
Theragen Tablet
1 tab PO DAILY
pantoprazole [Protonix] 20 mg Tablet,Delayed Release (Dr/Ec)
20 mg PO DAILY
Camzyos 2.5 mg Capsule
2.5 mg PO DAILY
ibuprofen [Advil] 200 mg Tablet
200 mg PO Q6HPRN PRN (Reason: mild pain)
Referrals:
Liliana Lassiter MD [Family Provider, Family Practice]
Activity Restrictions/Additional Instructions:
As we discussed, nothing worrisome in your workup here today.
See your family doctor in 2 days for recheck.
Return here immediately for any further near fainting episodes or feeling worse in any way.
Drink at least six 8 ounce glasses of water/fluids daily.
Interventions
Interventions:
*Risk Screen - Suicide Last Done: 11/28/24 09:59
*General Assessment Last Done: 11/28/24 11:17
*Neglect/Abuse Screening Last Done: 11/28/24 09:59
*ED- Fall Risk Assessment Last Done: 11/28/24 11:17
*Nursing Disposition Last Done: 11/28/24 17:00
BA-Pylvur-Ygrkpmtqfa Assessment Last Done: 11/28/24 11:17
Discharge Date and Time
Discharge Date/Time: 11/28/24 17:34
Print Language: ESTONIAN
[2024-11-28] MEDS: NSS 1000 IV (11:32)
[2024-11-28 12:03] LABS: % Basophils 0.2 % (0-2); % Immature Granulocytes 0.6 % (0-0.5); % Lymphocytes 11.2 % (20.5-51.1); % Monocytes 8.2 % (1.7-9.3); % Neutrophils 79.8 % (42.2-75.2); Absolute Lymphocytes 0.5 10^3/uL (1.2-3.4); Absolute Monocytes 0.4 10^3/uL (0.1-0.6); Absolute Neutrophils 3.8 10^3/uL (1.4-6.5); Hematocrit 36.8 % (37.0-47.0); Hemoglobin 12.8 g/dL (12.0-16.0); Mean Corp Hgb Conc. 34.8 g/dL (33.0-37.0); Mean Corpuscular Hgb 30.8 pg (27.0-31.0); Mean Corpuscular Volume 88.5 fL (81.0-99.0); Mean Platelet Volume 8.9 fL (7.4-10.4); Nucleated Red Blood Cells % 0 %; Platelet Count 152 10^3/uL (130-400); Red Blood Cell Count 4.16 10^6/uL (4.20-5.40); Red Cell Dist. Width 13.3 % (11.5-14.5); White Blood Cell Count 4.8 10^3/uL (4.8-10.8)
[2024-11-28 12:18] LABS: ALT (SGPT) 35 U/L (0-35); AST (SGOT) 44 U/L (14-36); Albumin 3.5 g/dl (3.5-5.0); Alkaline Phosphatase 66 U/L (38-126); Blood Urea Nitrogen 14 mg/dl (7-17); Calcium 9.4 mg/dl (8.4-10.2); Carbon Dioxide 26 mmol/L (22-30); Chloride 100 mmol/L (98-107); Glucose 123 mg/dl (70-99); Potassium 3.9 mmol/L (3.5-5.1); Sodium 131 mmol/L (135-145); Total Bilirubin 0.5 mg/dl (0.2-1.3); Total Protein 6.5 g/dl (6.3-8.2); eGFR > 60.00
[2024-11-28 12:27] LABS: COVID-19 Antigen Negative (Negative)
[2024-11-28 12:44] LABS: TSH Reflex To Free T4 0.65 uIU/ml (0.47-4.68)
[2024-11-28 16:33] LABS: Urine Albumin 1+ (Neg - Trace); Urine Bilirubin Negative (Negative); Urine Character Clear (Clear); Urine Color Yellow; Urine Glucose Negative (Negative); Urine Ketone Negative (Negative); Urine Leukocyte Negative (Negative); Urine Nitrite Negative (Negative); Urine Occult Blood Negative (Negative); Urine Urobilinogen Negative (Neg - 1+); Urine pH 6.5 (5.0-9.0)
[2024-11-28 16:35] LABS: Urine Bacteria Few (Negative); Urine Red Blood Cell 0-2 /HPF (0-2); Urine Squamous Cell >30 /LPF (Few)
--- NOTE | 2024-11-28 17:25 | DOWNTIME ---
There was a [employer] Client Assistant Speech Language Pathologist Downtime on 11/28/2024 from 1230 to 11/28/2024 at 1550. Downtime documentation of patient's care, including medication administrations, has been reconciled in the electronic record per guidelines. Refer to the
patient's paper chart under the miscellaneous tab to see printed paper medication records and downtime forms.
== END 2024-11-28 17:34 | disposition home or self-care (01) ==
LOC: EMR 09:48
PROVIDERS: Registered Nurse; EMERGENCY PHYSICIAN Student in an Organized Health Care Education/Training Program; FAMILY PHYSICIAN Family Medicine
DX: R55 Syncope and collapse (principal); R53.1 Weakness; S00.11XA Contusion of right eyelid and periocular area, initial encounter; S50.02XA Contusion of left elbow, initial encounter; W19.XXXA Unspecified fall, initial encounter; I11.0 Hypertensive heart disease with heart failure; I50.9 Heart failure, unspecified; E78.00 Pure hypercholesterolemia, unspecified; E03.9 Hypothyroidism, unspecified; G47.30 Sleep apnea, unspecified; Z11.52 Encounter for screening for COVID-19
CPT/HCPCS: 96360; 99284; 70450; 80053; 81003; 81015; 84443; 85025; 87502; 87811; 93005

== ENCOUNTER → 2025-03-25 10:00 | Outpatient (REF) | payer OTHER, SELFPAY | LOC: RAD 10:00 | PROVIDERS: ATTENDING PHYSICIAN Internal Medicine; FAMILY PHYSICIAN Family Medicine | DX: R59.0 Localized enlarged lymph nodes (principal) | CPT/HCPCS: 71260; Q9967 ==

== ENCOUNTER → 2025-04-11 10:22 | Outpatient (REF) | payer OTHER, SELFPAY | LOC: WDC 10:22 | PROVIDERS: ATTENDING PHYSICIAN Family Medicine | DX: Z12.31 Encounter for screening mammogram for malignant neoplasm of breast (principal) | CPT/HCPCS: 77063; 77067 ==